=== PATIENT | female | born 1955 | race African-American/Black ===

== ENCOUNTER 2019-03-16 22:13 | Inpatient (IN) | payer MEDICARE, MEDICAID ==
[2019-03-17] MEDS ORDERED: Maalox 30 mL Cup PO PRN (01:49)
--- NOTE | 2019-03-17 08:18 | Psychiatric Evaluation ---
DATE OF SERVICE: 03/17/2019 PSYCHIATRIC INITIAL EVALUATION AND MENTAL STATUS EXAMINATION AGE: 63. SEX: Female. PHYSICIAN: Dr. Vo. CHIEF COMPLAINT: Refused to eat and isolates herself. HISTORY OF PRESENT ILLNESS: The patient is a 63-year-old female with long history of depression and psychosis. The patient has been suspicious and has been paranoid. The patient also has been easily irritable and easily agitated and does not cooperate with the staff in [place] where she resides. The patient also does not want to leave her room and does not eat. She also has been anxious and restless and suspicious. PAST PSYCHIATRIC HISTORY: The patient has long history of depression and paranoia. PAST MEDICAL HISTORY: The patient has a history of hypertension and hyperlipidemia and gastroesophageal reflux disease and cataracts. SOCIAL HISTORY: The patient lives in [facility]. No known alcohol or drug use. ALLERGIES: No known allergies. MENTAL STATUS EXAMINATION: The patient appears her stated age. Anxious. Unkempt. Irritable mood. Suspicious and paranoid. She wants to be left alone. Thought processes are disorganized. The patient denies any hallucinations or delusions, but seems to be suspicious and paranoid. The patient denies any thoughts of suicide or homicide. The patient is alert and oriented to situation, but not to date or place. Intact immediate, recent and remote memories. Poor insight and poor judgment. Seems to be of average intelligence based on her verbal ability. ASSESSMENT: PRIMARY DIAGNOSIS: Depressive mood disorder, unspecified, severe, with psychotic features. SECONDARY DIAGNOSIS: History of schizophrenia. TREATMENT PLAN: We will continue to monitor the patient's behavior and condition closely. We will start individual as well as milieu psychotherapy. Also, we will monitor psychotropic medications. Also, we will add Remeron 7.5 mg at bedtime and we will continue to follow up. Also, we will work on her ineffective coping. ESTIMATED LENGTH OF STAY: 5-7 days. PATIENT'S STRENGTHS AND WEAKNESSES: The patient's strength is not clear at this time. Weakness is her ineffective coping and her paranoia. AFTER DISCHARGE PLAN: Outpatient treatment and followup will continue as an outpatient. CRITERIA FOR DISCHARGE: The patient will not be psychotic and will stabilize psychotropic medications and will establish outpatient treatment plans. JOB# [id number]
[2019-03-17] MEDS: Benztropine 1 MG TAB PO SCH (08:41)
--- NOTE | 2019-03-17 21:44 | History & Physical ---
ADMIT DATE: 03/17/2019 HISTORY OF PRESENT ILLNESS: The patient is a 63-year-old female with long history of hypertension, hyperlipidemia, degenerative joint disease, schizophrenia, admitted to [facility] under Dr. Vo's service. The patient denies any chest pain, shortness of breath, nausea, vomiting, fever or chills. The patient has a poor appetite and poor intake since this morning. PAST MEDICAL HISTORY: Significant for hypertension, hyperlipidemia, degenerative joint disease, schizophrenia. PAST SURGICAL HISTORY: No recent surgery. ALLERGIES: PENICILLIN. MEDICATIONS: Follow admission reconciliation. SOCIAL HISTORY: No smoking, no alcohol, no drug. FAMILY HISTORY: Noncontributory. REVIEW OF SYSTEMS: RENAL SYSTEM: No history of chronic renal disorder. CARDIOVASCULAR SYSTEM: No coronary artery disease. She has history of hypertension. ENDOCRINE SYSTEM: No diabetes or thyroid problem. GASTROINTESTINAL SYSTEM: No upper or lower GI bleed. NEUROLOGICAL SYSTEM: No seizure disorder. SKELETOMUSCULAR SYSTEM: She has degenerative joint disease. HEMATOLOGICAL SYSTEM: No bleeding tendencies. RESPIRATORY SYSTEM: No asthma. GENITOURINARY: No dysuria or hematuria. PHYSICAL EXAMINATION: GENERAL: She is awake, alert. VITAL SIGNS: Last temperature 97.3, heart rate 80, blood pressure 118/80. HEENT: Normocephalic. Pupils reactive to light and accommodation. Sclerae clear. NECK: Supple. Negative for lymphadenopathy, JVD or bruit. CHEST: Entry of air bilaterally normal. No rhonchi or wheezing. HEART: S1, S2 normal. No gallop rhythm. ABDOMEN: Soft, bowel sounds positive. EXTREMITIES: No edema. NEUROLOGIC: She is awake, alert, mildly confused. No focal muscle deficits. Cranial nerves 2-12 intact. ASSESSMENT: 1. Hypertension. 2. Hyperlipidemia. 3. Degenerative joint disease. 4. Schizophrenia. PLAN: The patient in the hospital under Dr. Vo's service. Problems addressed during hospitalization are schizophrenia. Medical problems addressed at discharge are hypertension, hyperlipidemia, degenerative joint disease. The patient was started on Megace 10 mL twice a day and Ensure 3 times a day. The patient cleared for activity. Thank you Dr. Vo for asking me to see your patient. The patient is a full code. JOB# [id number]
[2019-03-18] MEDS: Benztropine 1 MG TAB PO SCH (09:03)
--- NOTE | 2019-03-18 18:34 | Internal Medicine Prog Note ---
Internal Medicine Subjective - Subjective Service Date: 03/18/19 Patient seen and examined:: with staff (SHE IS DOING BETTER) Patient is:: awake, verbal, confused Per staff patient has:: no adverse event Internal Medicine Objective - Physical Exam Vitals and I&O: Vital Signs Temp 97.6 F 03/18/19 14:00 Pulse 72 03/18/19 14:00 Resp 20 03/18/19 14:00 BP 112/73 03/18/19 14:00 Pulse Ox 97 03/18/19 14:00 Intake & Output 03/17/19 03/18/19 03/18/19 18:59 06:59 18:59 Intake Total 900 120 Balance 900 120 Intake: Oral 900 120 Other: # Voids 3 2 # Bowel Movements 1 0 Active Medications: Current Medications Al Hydrox/Mg Hydrox/Simethicone (Maalox) 30 ml PO QID PRN PRN Reason: GI DISTRESS Stop: 05/16/19 01:48 Aripiprazole (Abilify) 5 mg PO QAM [facility]; Protocol Stop: 05/16/19 08:59 Last Admin: 03/18/19 09:03 Dose: 5 mg Benztropine Mesylate (Cogentin) 1 mg PO DAILY [facility] Stop: 05/16/19 08:59 Last Admin: 03/18/19 09:03 Dose: 1 mg Docusate Sodium (Colace) 250 mg PO DAILY [facility] Stop: 05/16/19 08:59 Last Admin: 03/18/19 09:03 Dose: 250 mg Escitalopram Oxalate (Lexapro) 20 mg PO DAILY [facility]; Protocol Stop: 05/16/19 08:59 Last Admin: 03/18/19 09:02 Dose: 20 mg Lorazepam (Ativan) 0.5 mg PO Q4HR PRN; Protocol PRN Reason: Anxiety Stop: 04/16/19 01:45 Megestrol Acetate (Megace) 400 mg PO BID [facility]; Protocol Stop: 05/17/19 08:59 Last Admin: 03/18/19 17:01 Dose: Not Given Metoprolol Succinate (Toprol Xl) 25 mg PO DAILY [facility] Stop: 05/16/19 08:59 Last Admin: 03/18/19 09:03 Dose: Not Given Simvastatin (Zocor) 20 mg PO HS [facility]; Protocol Stop: 05/16/19 20:59 Last Admin: 01/24/20 20:58 Dose: 20 mg Zolpidem Tartrate (Ambien) 5 mg PO HS PRN PRN Reason: Insomnia Stop: 05/16/19 01:45 General: demented HEENT: NC/AT, PERRLA, EOMI, anicteric sclerae, throat clear Neck: Supple, No JVD, No thyromegaly, +2 carotid pulse wo bruit, No LAD Lungs: CTAB Cardiovascular: RRR, Normal S1, Normal S2, without murmur Abdomen: soft, non-tender, non-distended Extremities: clear Neurological: no change - Procedures Procedures: Procedures Procedure Code Date ASPIR CURETT UTERUS NEC 69.59 08/15/09 COLONOSCOPY 45.23 03/26/10 DIAGNOSTIC COLONOSCOPY 02721 03/26/10 DILATION AND CURETTAGE 58532 08/15/09 LAPAROSCOPIC CHOLECYSTECTOMY 51.23 03/26/10 LAPAROSCOPIC CHOLECYSTECTOMY 86723 03/26/10 Internal Medicine Assmt/Plan - Assessment Assessment: 1.HTN. 2.HYPERLIPIDEMIA. 2.DJD. 4.SCHIZOPHRENIA - Plan Plan: CONTINUE ON CURRENT MEDICATION AND DIET.
--- NOTE | 2019-03-18 19:46 | Progress Notes ---
DATE: 03/18/2019 PSYCHIATRIC PROGRESS NOTE SUBJECTIVE: Chart reviewed and the patient interviewed. Also discussed the patient's condition with the staff and reviewed records and labs. The patient continued to be in a depressed mood. The patient also is still withdrawn and guarded and interacting minimally with others. On the other hand, the patient is eating slightly better and seems to be slightly less depressed. She is also trying to interact more with others. Dr. Grove started her on Megace yesterday. She still tends to isolate herself with minimal interaction with others. ASSESSMENT: The patient is still depressed. TREATMENT PLAN: Continue monitoring her behavior and her condition closely. Also, Abilify was increased to 5 mg every day and Remeron was added in a dose of 7.5 mg at bedtime. We will continue same dose and we will continue to monitor her condition and behavior closely. JOB# [id number]
[2019-03-19] MEDS: Benztropine 1 MG TAB PO SCH (09:22)
--- NOTE | 2019-03-19 19:57 | Progress Notes ---
DATE: 03/19/2019 SUBJECTIVE: Chart was reviewed and the patient interviewed. Also discussed the patient's condition with the staff and reviewed records and labs. The patient is still paranoid and in a depressed mood. The patient also still has flat affect. Also, personal hygiene is still poor and the patient still needs redirections. Otherwise, the patient is compliant with taking her medications with no side effects of medications. Also, her appetite seems to be improved. The patient continued to take Megace where that seems to help with her appetite as well as addition of the Remeron. ASSESSMENT: The patient is still depressed and psychotic. TREATMENT PLAN: Continue monitoring her behavior and her condition closely. Also, continue adjusting psychotropic medications and work on behavioral modification. [facility]# [id number]
--- NOTE | 2019-03-19 22:07 | Internal Medicine Prog Note ---
Internal Medicine Subjective - Subjective Service Date: 03/19/19 Patient seen and examined:: without staff (SHE FEELS WELL) Patient is:: awake, verbal, confused Per staff patient has:: no adverse event Internal Medicine Objective - Physical Exam Vitals and I&O: Vital Signs Temp 97.7 F 03/19/19 20:24 Pulse 70 03/19/19 20:24 Resp 20 03/19/19 20:24 BP 101/69 03/19/19 20:24 Pulse Ox 97 03/19/19 20:24 Intake & Output 03/19/19 03/19/19 03/20/19 06:59 18:59 06:59 Intake Total 240 900 240 Balance 240 900 240 Intake: Oral 240 900 240 Other: # Voids 1 3 2 # Bowel Movements 1 Active Medications: Current Medications Al Hydrox/Mg Hydrox/Simethicone (Maalox) 30 ml PO QID PRN PRN Reason: GI DISTRESS Stop: 05/16/19 01:48 Aripiprazole (Abilify) 5 mg PO QAM [facility]; Protocol Stop: 05/16/19 08:59 Last Admin: 03/19/19 09:22 Dose: 5 mg Benztropine Mesylate (Cogentin) 1 mg PO DAILY [facility] Stop: 05/16/19 08:59 Last Admin: 03/19/19 09:22 Dose: 1 mg Docusate Sodium (Colace) 250 mg PO DAILY [facility] Stop: 05/16/19 08:59 Last Admin: 03/19/19 09:23 Dose: 250 mg Escitalopram Oxalate (Lexapro) 20 mg PO DAILY [facility]; Protocol Stop: 05/16/19 08:59 Last Admin: 03/19/19 09:22 Dose: 20 mg Lorazepam (Ativan) 0.5 mg PO Q4HR PRN; Protocol PRN Reason: Anxiety Stop: 04/16/19 01:45 Megestrol Acetate (Megace) 400 mg PO BID [facility]; Protocol Stop: 05/17/19 08:59 Last Admin: 03/19/19 17:47 Dose: 400 mg Metoprolol Succinate (Toprol Xl) 25 mg PO DAILY [facility] Stop: 05/16/19 08:59 Last Admin: 03/19/19 09:26 Dose: 25 mg Simvastatin (Zocor) 20 mg PO HS [facility]; Protocol Stop: 05/16/19 20:59 Last Admin: 03/19/19 21:37 Dose: 20 mg Zolpidem Tartrate (Ambien) 5 mg PO HS PRN PRN Reason: Insomnia Stop: 05/16/19 01:45 Last Admin: 03/18/19 21:36 Dose: 5 mg General: demented HEENT: NC/AT, PERRLA, EOMI, anicteric sclerae, throat clear Neck: Supple, No JVD, No thyromegaly, +2 carotid pulse wo bruit, No LAD Lungs: CTAB Cardiovascular: RRR, Normal S1, Normal S2, without murmur Abdomen: soft, non-tender, non-distended Extremities: clear Neurological: no change - Procedures Procedures: Procedures Procedure Code Date ASPIR CURETT UTERUS NEC 69.59 08/15/09 COLONOSCOPY 45.23 03/26/10 DIAGNOSTIC COLONOSCOPY 35396 03/26/10 DILATION AND CURETTAGE 55364 08/15/09 LAPAROSCOPIC CHOLECYSTECTOMY 51.23 03/26/10 LAPAROSCOPIC CHOLECYSTECTOMY 57425 03/26/10 Internal Medicine Assmt/Plan - Assessment Assessment: 1.HTN. 2.HYPERLIPIDEMIA. 2.DJD. 4.SCHIZOPHRENIA - Plan Plan: CONTINUE ON CURRENT MEDICATION AND DIET.
[2019-03-20] MEDS: Benztropine 1 MG TAB PO SCH (08:51)
--- NOTE | 2019-03-20 20:22 | Internal Medicine Prog Note ---
Internal Medicine Subjective - Subjective Service Date: 03/20/19 Patient seen and examined:: without staff (SHE IS DOING WELL) Patient is:: awake, verbal, confused Per staff patient has:: no adverse event Internal Medicine Objective - Physical Exam Vitals and I&O: Vital Signs Temp 97.5 F 03/20/19 14:00 Pulse 64 03/20/19 14:00 Resp 20 03/20/19 14:00 BP 111/71 03/20/19 14:00 Pulse Ox 96 03/20/19 14:00 Intake & Output 03/20/19 03/20/19 03/21/19 06:59 18:59 06:59 Intake Total 360 1000 Balance 360 1000 Intake: Oral 360 1000 Other: # Voids 1 4 # Bowel Movements 0 1 Active Medications: Current Medications Al Hydrox/Mg Hydrox/Simethicone (Maalox) 30 ml PO QID PRN PRN Reason: GI DISTRESS Stop: 05/16/19 01:48 Aripiprazole (Abilify) 5 mg PO QAM [facility]; Protocol Stop: 05/16/19 08:59 Last Admin: 03/20/19 08:51 Dose: 5 mg Benztropine Mesylate (Cogentin) 1 mg PO DAILY [facility] Stop: 05/16/19 08:59 Last Admin: 03/20/19 08:51 Dose: 1 mg Docusate Sodium (Colace) 250 mg PO DAILY [facility] Stop: 05/16/19 08:59 Last Admin: 03/20/19 08:51 Dose: 250 mg Escitalopram Oxalate (Lexapro) 20 mg PO DAILY [facility]; Protocol Stop: 05/16/19 08:59 Last Admin: 03/20/19 08:51 Dose: 20 mg Lorazepam (Ativan) 0.5 mg PO Q4HR PRN; Protocol PRN Reason: Anxiety Stop: 04/16/19 01:45 Megestrol Acetate (Megace) 400 mg PO BID [facility]; Protocol Stop: 05/17/19 08:59 Last Admin: 03/20/19 17:00 Dose: 400 mg Metoprolol Succinate (Toprol Xl) 25 mg PO DAILY [facility] Stop: 05/16/19 08:59 Last Admin: 03/20/19 08:52 Dose: Not Given Mirtazapine (Remeron) 7.5 mg PO HS [facility]; Protocol Stop: 05/19/19 20:59 Simvastatin (Zocor) 20 mg PO HS [facility]; Protocol Stop: 05/16/19 20:59 Last Admin: 03/19/19 21:37 Dose: 20 mg Zolpidem Tartrate (Ambien) 5 mg PO HS PRN PRN Reason: Insomnia Stop: 05/16/19 01:45 Last Admin: 03/18/19 21:36 Dose: 5 mg General: demented HEENT: NC/AT, PERRLA, EOMI, anicteric sclerae, throat clear Neck: Supple, No JVD, No thyromegaly, +2 carotid pulse wo bruit, No LAD Lungs: CTAB Cardiovascular: RRR, Normal S1, Normal S2, without murmur Abdomen: soft, non-tender, non-distended Extremities: clear Neurological: no change - Procedures Procedures: Procedures Procedure Code Date ASPIR CURETT UTERUS NEC 69.59 08/15/09 COLONOSCOPY 45.23 03/26/10 DIAGNOSTIC COLONOSCOPY 55185 03/26/10 DILATION AND CURETTAGE 53897 08/15/09 LAPAROSCOPIC CHOLECYSTECTOMY 51.23 03/26/10 LAPAROSCOPIC CHOLECYSTECTOMY 20319 03/26/10 Internal Medicine Assmt/Plan - Assessment Assessment: 1.HTN. 2.HYPERLIPIDEMIA. 2.DJD. 4.SCHIZOPHRENIA - Plan Plan: CONTINUE ON CURRENT MEDICATION AND DIET. Nutritional Asmnt/Malnutr-PDOC - Dietary Evaluation Malnutrition Findings (Please click <Entered> for more info): Nutritional Asmnt/Malnutrition Start: 03/20/19 14: 08 Text: Status: Complete Freq: Protocol: Document 03/20/19 14:08 AGNEL (Rec: 03/20/19 14:10 [email or web address] [email or web address]) Nutritional Asmnt/Malnutrition Patient General Information Nutritional Screening Moderate Risk Diagnosis Psychosis Pertinent Medical Hx/Surgical Hx HTN, Hyperlipidemia, DJD, Schizophrenia Subjective Information Pt is a 63-year-old female admitted on 03/17 d/t. Pt is eating an estimated 95% of meals Per Meal/Nutrition Activity Record. Dietary is currently providing an estimated 2500 kcals and 110 gm Pro, per Pt PO intake this is providing an estimated 2400 kcals and 105gm Pro to meet 100+% kcal and 100+% Pro needs . Visited pt in room today, she still had lunch on her tray table. Pt had eaten the ice cream and drank the milk. Pt stated she just has a small appetite. She understands she is on an appetite stimulant and she does drink her Ensure. Nurse Samira stated she typically eats almost all of her meal trays and she may finish her tray with more time . As pt is exceeding estimated nutritional needs overall, Recommend Cardiac diet d/t Hx of HTN and Hyperlipidemia and BMI 37.31. Anthropometrics HT: 52 WT: 204 LB (92.73 kg) ABW: 135 LB (60.68 kg) BMI: 37.31 (Obese, class II) GI/ Skin Integrity GI: WNL, Soft, Non-tender BM: 03/19 x1 I/O: 1260/Not Noted Skin: WNL, Intact Leonid: 20 Diet Order: 2 GM NA, Ensure Enlive TID Estimated Energy Needs: (Obese , ABW) 0385-4544 kcals (20-25 kcals/ kg) 50-60g Pro (0.8-1.0 g/kg) 9089-0239 ml (25-30 ml/kg) Current Diet Order/ Nutrition Support 2 GM NA, Ensure Enlive TID Pertinent Medications Colace, Megace Pertinent Labs No labs charted/available. Nutritional Hx/Data Height 1.57 m Height (Calculated Centimeters) 157.5 Current Weight (lbs) 92.533 kg Weight (Calculated Kilograms) 92.5 Weight (Calculated Grams) 01821.8 Hiram Body Weight 110 LB (50 kg) % Hiram Body Weight 185 Body Mass Index (BMI) 37.3 Weight Status Obese GI Symptoms Last BM 03/19 x1 Skin Integrity/Comment: Skin: WNL, Intact Leonid: 20 Current %PO Good (75-100%) Estimated Nutritional Goals BEE in Kcals: Adj wt of IBW Calories/Kcals/Kg 20-25 Kcals Calculated 9370-5247 Protein: Adj wt of IBW Protein g/k.8-1.0 Protein Calculated 50-60 Fluid: ml 8830-0748 Nutritional Problem 1. Problem Problem Obesity Etiology r/t chronic energy overconsumption Signs/Symptoms: aeb BMI 37.31. Malnutrition Related to Morbid Obesity Malnutrition related to morbid obesity No Intervention/Recommendation Comments Recommend Cardiac diet d/t Hx of HTN and Hyperlipidemia and BMI 37.31. Expected Outcomes/Goals Expected Outcomes/Goals 1.PO intake to continue to meet >75% of estimated nutritional needs. 2.Monitor PO intake, wt, nutrition related labs, and skin integrity. 3.Gradual weight loss (0.5-1.0 LB/week) trending toward STACEY preferred. 4.F/U as low risk in 7-10 days , //-03/30
--- NOTE | 2019-03-21 03:13 | Progress Notes ---
DATE: 03/20/2019 SUBJECTIVE: Chart was reviewed and the patient interviewed. Also discussed the patient's condition with the staff and reviewed records and labs. The patient continued to be depressed and is still suspicious and paranoid. The patient also is still talking to herself. She also is still forgetful and needs redirections. Also, has flat affect. Otherwise, the patient is compliant with taking her medications. The patient's appetite is still poor at times and was supposed to start the patient on Remeron yesterday, for some reason it did not start. ASSESSMENT: The patient is still depressed and still has poor appetite. TREATMENT PLAN: We will add Remeron 7.5 mg at bedtime and continue Abilify and Lexapro and continue to monitor her condition closely. JOB# [id number]
[2019-03-21] MEDS: Benztropine 1 MG TAB PO SCH (08:42)
--- NOTE | 2019-03-21 10:27 | Internal Medicine Prog Note ---
Internal Medicine Subjective - Subjective Service Date: 03/21/19 Patient seen and examined:: without staff (SHE IS CONFUSED) Patient is:: awake, verbal, confused Per staff patient has:: no adverse event Internal Medicine Objective - Physical Exam Vitals and I&O: Vital Signs Temp 97.1 F 03/21/19 06:46 Pulse 56 03/21/19 08:42 Resp 20 03/21/19 06:46 BP 116/62 03/21/19 08:42 Pulse Ox 100 03/21/19 06:46 Intake & Output 03/20/19 03/21/19 03/21/19 18:59 06:59 18:59 Intake Total 1000 240 Balance 1000 240 Intake: Oral 1000 240 Other: # Voids 4 1 # Bowel Movements 1 Active Medications: Current Medications Al Hydrox/Mg Hydrox/Simethicone (Maalox) 30 ml PO QID PRN PRN Reason: GI DISTRESS Stop: 05/16/19 01:48 Aripiprazole (Abilify) 5 mg PO QAM [facility]; Protocol Stop: 05/16/19 08:59 Last Admin: 03/21/19 08:42 Dose: 5 mg Benztropine Mesylate (Cogentin) 1 mg PO DAILY [facility] Stop: 05/16/19 08:59 Last Admin: 03/21/19 08:42 Dose: 1 mg Docusate Sodium (Colace) 250 mg PO DAILY [facility] Stop: 05/16/19 08:59 Last Admin: 03/21/19 08:42 Dose: 250 mg Escitalopram Oxalate (Lexapro) 20 mg PO DAILY [facility]; Protocol Stop: 05/16/19 08:59 Last Admin: 03/21/19 08:42 Dose: 20 mg Lorazepam (Ativan) 0.5 mg PO Q4HR PRN; Protocol PRN Reason: Anxiety Stop: 04/16/19 01:45 Megestrol Acetate (Megace) 400 mg PO BID [facility]; Protocol Stop: 05/17/19 08:59 Last Admin: 03/21/19 08:41 Dose: 400 mg Metoprolol Succinate (Toprol Xl) 25 mg PO DAILY [facility] Stop: 05/16/19 08:59 Last Admin: 03/21/19 08:42 Dose: Not Given Mirtazapine (Remeron) 7.5 mg PO HS [facility]; Protocol Stop: 05/19/19 20:59 Last Admin: 03/20/19 20:54 Dose: 7.5 mg Simvastatin (Zocor) 20 mg PO HS [facility]; Protocol Stop: 05/16/19 20:59 Last Admin: 03/20/19 20:54 Dose: 20 mg Zolpidem Tartrate (Ambien) 5 mg PO HS PRN PRN Reason: Insomnia Stop: 05/16/19 01:45 Last Admin: 03/18/19 21:36 Dose: 5 mg General: demented HEENT: NC/AT, PERRLA, EOMI, anicteric sclerae, throat clear Neck: Supple, No JVD, No thyromegaly, +2 carotid pulse wo bruit, No LAD Lungs: CTAB Cardiovascular: RRR, Normal S1, Normal S2, without murmur Abdomen: soft, non-tender, non-distended Extremities: clear Neurological: no change - Procedures Procedures: Procedures Procedure Code Date ASPIR CURETT UTERUS NEC 69.59 08/15/09 COLONOSCOPY 45.23 03/26/10 DIAGNOSTIC COLONOSCOPY 76624 03/26/10 DILATION AND CURETTAGE 93231 08/15/09 LAPAROSCOPIC CHOLECYSTECTOMY 51.23 03/26/10 LAPAROSCOPIC CHOLECYSTECTOMY 08498 03/26/10 Internal Medicine Assmt/Plan - Assessment Assessment: 1.HTN. 2.HYPERLIPIDEMIA. 2.DJD. 4.SCHIZOPHRENIA - Plan Plan: CONTINUE ON CURRENT MEDICATION AND DIET. Nutritional Asmnt/Malnutr-PDOC - Dietary Evaluation Malnutrition Findings (Please click <Entered> for more info): Nutritional Asmnt/Malnutrition Start: 03/20/19 14: 08 Text: Status: Complete Freq: Protocol: Document 03/20/19 14:08 ANGEL (Rec: 03/20/19 14:10 ANGEL [email or web address]) Nutritional Asmnt/Malnutrition Patient General Information Nutritional Screening Moderate Risk Diagnosis Psychosis Pertinent Medical Hx/Surgical Hx HTN, Hyperlipidemia, DJD, Schizophrenia Subjective Information Pt is a 63-year-old female admitted on 03/17 d/t. Pt is eating an estimated 95% of meals Per Meal/Nutrition Activity Record. Dietary is currently providing an estimated 2500 kcals and 110 gm Pro, per Pt PO intake this is providing an estimated 2400 kcals and 105gm Pro to meet 100+% kcal and 100+% Pro needs . Visited pt in room today, she still had lunch on her tray table. Pt had eaten the ice cream and drank the milk. Pt stated she just has a small appetite. She understands she is on an appetite stimulant and she does drink her Ensure. Nurse Samira stated she typically eats almost all of her meal trays and she may finish her tray with more time . As pt is exceeding estimated nutritional needs overall, Recommend Cardiac diet d/t Hx of HTN and Hyperlipidemia and BMI 37.31. Anthropometrics HT: 52 WT: 204 LB (92.73 kg) ABW: 135 LB (60.68 kg) BMI: 37.31 (Obese, class II) GI/ Skin Integrity GI: WNL, Soft, Non-tender BM: 03/19 x1 I/O: 1260/Not Noted Skin: WNL, Intact Leonid: 20 Diet Order: 2 GM NA, Ensure Enlive TID Estimated Energy Needs: (Obese , ABW) 0895-4427 kcals (20-25 kcals/ kg) 50-60g Pro (0.8-1.0 g/kg) 2710-1172 ml (25-30 ml/kg) Current Diet Order/ Nutrition Support 2 GM NA, Ensure Enlive TID Pertinent Medications Colace, Megace Pertinent Labs No labs charted/available. Nutritional Hx/Data Height 1.57 m Height (Calculated Centimeters) 157.5 Current Weight (lbs) 92.533 kg Weight (Calculated Kilograms) 92.5 Weight (Calculated Grams) 18531.8 [place] Body Weight 110 LB (50 kg) % [place] Body Weight 185 Body Mass Index (BMI) 37.3 Weight Status Obese GI Symptoms Last BM 03/19 x1 Skin Integrity/Comment: Skin: WNL, Intact Leonid: 20 Current %PO Good (75-100%) Estimated Nutritional Goals BEE in Kcals: Adj wt of IBW Calories/Kcals/Kg 20-25 Kcals Calculated 5454-8156 Protein: Adj wt of IBW Protein g/k.8-1.0 Protein Calculated 50-60 Fluid: ml 6040-0693 Nutritional Problem 1. Problem Problem Obesity Etiology r/t chronic energy overconsumption Signs/Symptoms: aeb BMI 37.31. Malnutrition Related to Morbid Obesity Malnutrition related to morbid obesity No Intervention/Recommendation Comments Recommend Cardiac diet d/t Hx of HTN and Hyperlipidemia and BMI 37.31. Expected Outcomes/Goals Expected Outcomes/Goals 1.PO intake to continue to meet >75% of estimated nutritional needs. 2.Monitor PO intake, wt, nutrition related labs, and skin integrity. 3.Gradual weight loss (0.5-1.0 LB/week) trending toward STACEY preferred. 4.F/U as low risk in 7-10 days , -03/30
--- NOTE | 2019-03-21 18:35 | Progress Notes ---
DATE: 03/21/2019 SUBJECTIVE: Chart was reviewed and the patient interviewed. Also discussed the patient's condition with the staff and reviewed records and labs. The patient continued to be suspicious and continued to be paranoid. The patient also is still forgetful and is still isolative and withdrawn and depressed. The patient also has continued to be argumentative at times, but at the same time, she is compliant with taking her medications with no side effects of medications. ASSESSMENT: The patient is still depressed and withdrawn. TREATMENT PLAN: Continue monitoring her behavior and her condition closely. Also, continue Abilify, Lexapro and Remeron same dose and continue to follow up. JOB# [id number]
[2019-03-22] MEDS: Benztropine 1 MG TAB PO SCH (08:44)
--- NOTE | 2019-03-22 11:35 | Internal Medicine Prog Note ---
Internal Medicine Subjective - Subjective Service Date: 03/22/19 Patient seen and examined:: with staff (SHE IS DOING WELL) Patient is:: awake, verbal, confused Per staff patient has:: no adverse event Internal Medicine Objective - Physical Exam Vitals and I&O: Vital Signs Temp 97.4 F 03/22/19 06:26 Pulse 69 03/22/19 09:02 Resp 20 03/22/19 06:26 BP 107/71 03/22/19 09:02 Pulse Ox 97 03/22/19 06:26 Intake & Output 03/21/19 03/22/19 03/22/19 18:59 06:59 18:59 Intake Total 1200 360 Balance 1200 360 Intake: Oral 1200 360 Other: # Voids 4 2 # Bowel Movements 1 0 Active Medications: Current Medications Al Hydrox/Mg Hydrox/Simethicone (Maalox) 30 ml PO QID PRN PRN Reason: GI DISTRESS Stop: 05/16/19 01:48 Aripiprazole (Abilify) 5 mg PO QAM [facility]; Protocol Stop: 05/16/19 08:59 Last Admin: 03/22/19 08:43 Dose: 5 mg Benztropine Mesylate (Cogentin) 1 mg PO DAILY [facility] Stop: 05/16/19 08:59 Last Admin: 03/22/19 08:44 Dose: 1 mg Docusate Sodium (Colace) 250 mg PO DAILY [facility] Stop: 05/16/19 08:59 Last Admin: 03/22/19 08:43 Dose: 250 mg Escitalopram Oxalate (Lexapro) 20 mg PO DAILY [facility]; Protocol Stop: 05/16/19 08:59 Last Admin: 03/22/19 08:43 Dose: 20 mg Lorazepam (Ativan) 0.5 mg PO Q4HR PRN; Protocol PRN Reason: Anxiety Stop: 04/16/19 01:45 Megestrol Acetate (Megace) 400 mg PO BID [facility]; Protocol Stop: 05/17/19 08:59 Last Admin: 03/22/19 08:43 Dose: 400 mg Metoprolol Succinate (Toprol Xl) 25 mg PO DAILY [facility] Stop: 05/16/19 08:59 Last Admin: 03/22/19 09:02 Dose: Not Given Mirtazapine (Remeron) 15 mg PO HS [facility]; Protocol Stop: 05/21/19 20:59 Simvastatin (Zocor) 20 mg PO HS [facility]; Protocol Stop: 05/16/19 20:59 Last Admin: 03/21/19 20:35 Dose: 20 mg Zolpidem Tartrate (Ambien) 5 mg PO HS PRN PRN Reason: Insomnia Stop: 05/16/19 01:45 Last Admin: 03/18/19 21:36 Dose: 5 mg General: demented HEENT: NC/AT, PERRLA, EOMI, anicteric sclerae, throat clear Neck: Supple, No JVD, No thyromegaly, +2 carotid pulse wo bruit, No LAD Lungs: CTAB Cardiovascular: RRR, Normal S1, Normal S2, without murmur Abdomen: soft, non-tender, non-distended Extremities: clear Neurological: no change - Procedures Procedures: Procedures Procedure Code Date ASPIR CURETT UTERUS NEC 69.59 08/15/09 COLONOSCOPY 45.23 03/26/10 DIAGNOSTIC COLONOSCOPY 16718 03/26/10 DILATION AND CURETTAGE 26956 08/15/09 LAPAROSCOPIC CHOLECYSTECTOMY 51.23 03/26/10 LAPAROSCOPIC CHOLECYSTECTOMY 72769 03/26/10 Internal Medicine Assmt/Plan - Assessment Assessment: 1.HTN. 2.HYPERLIPIDEMIA. 2.DJD. 4.SCHIZOPHRENIA - Plan Plan: CONTINUE ON CURRENT MEDICATION AND DIET. Nutritional Asmnt/Malnutr-PDOC - Dietary Evaluation Malnutrition Findings (Please click <Entered> for more info): Nutritional Asmnt/Malnutrition Start: 03/20/19 14: 08 Text: Status: Complete Freq: Protocol: Document 03/20/19 14:08 ANGEL (Rec: 03/20/19 14:10 ANGEL [email or web address]) Nutritional Asmnt/Malnutrition Patient General Information Nutritional Screening Moderate Risk Diagnosis Psychosis Pertinent Medical Hx/Surgical Hx HTN, Hyperlipidemia, DJD, Schizophrenia Subjective Information Pt is a 63-year-old female admitted on 03/17 d/t. Pt is eating an estimated 95% of meals Per Meal/Nutrition Activity Record. Dietary is currently providing an estimated 2500 kcals and 110 gm Pro, per Pt PO intake this is providing an estimated 2400 kcals and 105gm Pro to meet 100+% kcal and 100+% Pro needs . Visited pt in room today, she still had lunch on her tray table. Pt had eaten the ice cream and drank the milk. Pt stated she just has a small appetite. She understands she is on an appetite stimulant and she does drink her Ensure. Nurse Samira stated she typically eats almost all of her meal trays and she may finish her tray with more time . As pt is exceeding estimated nutritional needs overall, Recommend Cardiac diet d/t Hx of HTN and Hyperlipidemia and BMI 37.31. Anthropometrics HT: 52 WT: 204 LB (92.73 kg) ABW: 135 LB (60.68 kg) BMI: 37.31 (Obese, class II) GI/ Skin Integrity GI: WNL, Soft, Non-tender BM: 03/19 x1 I/O: 1260/Not Noted Skin: WNL, Intact Leonid: 20 Diet Order: 2 GM NA, Ensure Enlive TID Estimated Energy Needs: (Obese , ABW) 1028-2194 kcals (20-25 kcals/ kg) 50-60g Pro (0.8-1.0 g/kg) 9851-3765 ml (25-30 ml/kg) Current Diet Order/ Nutrition Support 2 GM NA, Ensure Enlive TID Pertinent Medications Colace, Megace Pertinent Labs No labs charted/available. Nutritional Hx/Data Height 1.57 m Height (Calculated Centimeters) 157.5 Current Weight (lbs) 92.533 kg Weight (Calculated Kilograms) 92.5 Weight (Calculated Grams) 52831.8 [place] Body Weight 110 LB (50 kg) % [place] Body Weight 185 Body Mass Index (BMI) 37.3 Weight Status Obese GI Symptoms Last BM 03/19 x1 Skin Integrity/Comment: Skin: WNL, Intact Leonid: 20 Current %PO Good (75-100%) Estimated Nutritional Goals BEE in Kcals: Adj wt of IBW Calories/Kcals/Kg 20-25 Kcals Calculated 2264-6206 Protein: Adj wt of IBW Protein g/k.8-1.0 Protein Calculated 50-60 Fluid: ml 9930-3921 Nutritional Problem 1. Problem Problem Obesity Etiology r/t chronic energy overconsumption Signs/Symptoms: aeb BMI 37.31. Malnutrition Related to Morbid Obesity Malnutrition related to morbid obesity No Intervention/Recommendation Comments Recommend Cardiac diet d/t Hx of HTN and Hyperlipidemia and BMI 37.31. Expected Outcomes/Goals Expected Outcomes/Goals 1.PO intake to continue to meet >75% of estimated nutritional needs. 2.Monitor PO intake, wt, nutrition related labs, and skin integrity. 3.Gradual weight loss (0.5-1.0 LB/week) trending toward STACEY preferred. 4.F/U as low risk in 7-10 days , //-03/30
[2019-03-23] MEDS: Benztropine 1 MG TAB PO SCH (09:01)
--- NOTE | 2019-03-23 10:13 | Progress Notes ---
DATE: 03/22/2019 SUBJECTIVE: Chart was reviewed and the patient interviewed. Also discussed the patient's condition with the staff and reviewed records and labs. The patient is still in a depressed mood. The patient also is still withdrawn and isolative and interacting minimally with others. She also is still suspicious and at times seems to be paranoid, but no behavioral issues. The patient also is isolating herself and does not get out of her room much. Otherwise, the patient is compliant with taking her medications with no side effects of medications. ASSESSMENT: The patient is still depressed and guarded. TREATMENT PLAN: Continue to monitor behavior and condition closely. Also, we will increase Remeron to 15 mg at bedtime and continue to work on her ineffective coping. JOB# [id number]
--- NOTE | 2019-03-23 10:13 | Progress Notes ---
DATE: SUBJECTIVE: Chart was reviewed and the patient interviewed. Also discussed the patient's condition with the staff and reviewed records and labs. The patient is still in a depressed mood. The patient also is guarded and withdrawn. She is interacting minimally with peers and with others. The patient also still has mood swings and she is still at times guarded and withdrawn and other times is suspicious and irritable. On the other hand, patient's personal hygiene seems to be better. ASSESSMENT: The patient is still depressed and needs to work on her ineffective coping as well as her depression. Also, continue adjusting medications and continue to work on her isolation and depression. She also is still taking Remeron in a dose of 7.5 mg and Lexapro 20 mg every day and Remeron 15 mg at bedtime. We will continue same dose and continue to follow up behavior and condition closely. JOB# [id number]
--- NOTE | 2019-03-23 19:34 | Internal Medicine Prog Note ---
Internal Medicine Subjective - Subjective Service Date: 03/23/19 Patient seen and examined:: without staff (SHE FEELS WELL) Patient is:: awake, verbal, confused Per staff patient has:: no adverse event Internal Medicine Objective - Physical Exam Vitals and I&O: Vital Signs Temp 97.4 F 03/23/19 13:54 Pulse 85 03/23/19 13:54 Resp 20 03/23/19 13:54 BP 128/63 03/23/19 13:54 Pulse Ox 96 03/23/19 13:54 Intake & Output 03/23/19 03/23/19 03/24/19 06:59 18:59 06:59 Intake Total 120 Balance 120 Intake: Oral 120 Other: # Voids 2 3 # Bowel Movements 0 1 Active Medications: Current Medications Al Hydrox/Mg Hydrox/Simethicone (Maalox) 30 ml PO QID PRN PRN Reason: GI DISTRESS Stop: 05/16/19 01:48 Aripiprazole (Abilify) 5 mg PO QAM [facility]; Protocol Stop: 05/16/19 08:59 Last Admin: 03/23/19 09:02 Dose: 5 mg Benztropine Mesylate (Cogentin) 1 mg PO DAILY [facility] Stop: 05/16/19 08:59 Last Admin: 03/23/19 09:01 Dose: 1 mg Docusate Sodium (Colace) 250 mg PO DAILY [facility] Stop: 05/16/19 08:59 Last Admin: 03/23/19 09:02 Dose: 250 mg Escitalopram Oxalate (Lexapro) 20 mg PO DAILY [facility]; Protocol Stop: 05/16/19 08:59 Last Admin: 03/23/19 09:00 Dose: 20 mg Lorazepam (Ativan) 0.5 mg PO Q4HR PRN; Protocol PRN Reason: Anxiety Stop: 04/16/19 01:45 Megestrol Acetate (Megace) 400 mg PO BID [facility]; Protocol Stop: 05/17/19 08:59 Last Admin: 03/23/19 17:28 Dose: 400 mg Metoprolol Succinate (Toprol Xl) 25 mg PO DAILY [facility] Stop: 05/16/19 08:59 Last Admin: 03/23/19 09:01 Dose: 25 mg Mirtazapine (Remeron) 15 mg PO HS [facility]; Protocol Stop: 05/21/19 20:59 Last Admin: 03/22/19 20:59 Dose: 15 mg Simvastatin (Zocor) 20 mg PO HS [facility]; Protocol Stop: 05/16/19 20:59 Last Admin: 03/22/19 20:59 Dose: 20 mg Zolpidem Tartrate (Ambien) 5 mg PO HS PRN PRN Reason: Insomnia Stop: 05/16/19 01:45 Last Admin: 03/18/19 21:36 Dose: 5 mg General: demented HEENT: NC/AT, PERRLA, EOMI, anicteric sclerae, throat clear Neck: Supple, No JVD, No thyromegaly, +2 carotid pulse wo bruit, No LAD Lungs: CTAB Cardiovascular: RRR, Normal S1, Normal S2, without murmur Abdomen: soft, non-tender, non-distended Extremities: clear Neurological: no change - Procedures Procedures: Procedures Procedure Code Date ASPIR CURETT UTERUS NEC 69.59 08/15/09 COLONOSCOPY 45.23 03/26/10 DIAGNOSTIC COLONOSCOPY 96684 03/26/10 DILATION AND CURETTAGE 83887 08/15/09 LAPAROSCOPIC CHOLECYSTECTOMY 51.23 03/26/10 LAPAROSCOPIC CHOLECYSTECTOMY 03236 03/26/10 Internal Medicine Assmt/Plan - Assessment Assessment: 1.HTN. 2.HYPERLIPIDEMIA. 2.DJD. 4.SCHIZOPHRENIA - Plan Plan: CONTINUE ON CURRENT MEDICATION AND DIET. Nutritional Asmnt/Malnutr-PDOC - Dietary Evaluation Malnutrition Findings (Please click <Entered> for more info): Nutritional Asmnt/Malnutrition Start: 03/20/19 14: 08 Text: Status: Complete Freq: Protocol: Document 03/20/19 14:08 ANGEL (Rec: 03/20/19 14:10 ANGEL [email or web address]) Nutritional Asmnt/Malnutrition Patient General Information Nutritional Screening Moderate Risk Diagnosis Psychosis Pertinent Medical Hx/Surgical Hx HTN, Hyperlipidemia, DJD, Schizophrenia Subjective Information Pt is a 63-year-old female admitted on 03/17 d/t. Pt is eating an estimated 95% of meals Per Meal/Nutrition Activity Record. Dietary is currently providing an estimated 2500 kcals and 110 gm Pro, per Pt PO intake this is providing an estimated 2400 kcals and 105gm Pro to meet 100+% kcal and 100+% Pro needs . Visited pt in room today, she still had lunch on her tray table. Pt had eaten the ice cream and drank the milk. Pt stated she just has a small appetite. She understands she is on an appetite stimulant and she does drink her Ensure. Nurse Samira stated she typically eats almost all of her meal trays and she may finish her tray with more time . As pt is exceeding estimated nutritional needs overall, Recommend Cardiac diet d/t Hx of HTN and Hyperlipidemia and BMI 37.31. Anthropometrics HT: 52 WT: 204 LB (92.73 kg) ABW: 135 LB (60.68 kg) BMI: 37.31 (Obese, class II) GI/ Skin Integrity GI: WNL, Soft, Non-tender BM: 03/19 x1 I/O: 1260/Not Noted Skin: WNL, Intact Leonid: 20 Diet Order: 2 GM NA, Ensure Enlive TID Estimated Energy Needs: (Obese , ABW) 4713-4272 kcals (20-25 kcals/ kg) 50-60g Pro (0.8-1.0 g/kg) 8928-0303 ml (25-30 ml/kg) Current Diet Order/ Nutrition Support 2 GM NA, Ensure Enlive TID Pertinent Medications Colace, Megace Pertinent Labs No labs charted/available. Nutritional Hx/Data Height 1.57 m Height (Calculated Centimeters) 157.5 Current Weight (lbs) 92.533 kg Weight (Calculated Kilograms) 92.5 Weight (Calculated Grams) 76370.8 [place] Body Weight 110 LB (50 kg) % [place] Body Weight 185 Body Mass Index (BMI) 37.3 Weight Status Obese GI Symptoms Last BM 03/19 x1 Skin Integrity/Comment: Skin: WNL, Intact Leonid: 20 Current %PO Good (75-100%) Estimated Nutritional Goals BEE in Kcals: Adj wt of IBW Calories/Kcals/Kg 20-25 Kcals Calculated 6139-1450 Protein: Adj wt of IBW Protein g/k.8-1.0 Protein Calculated 50-60 Fluid: ml 1266-6395 Nutritional Problem 1. Problem Problem Obesity Etiology r/t chronic energy overconsumption Signs/Symptoms: aeb BMI 37.31. Malnutrition Related to Morbid Obesity Malnutrition related to morbid obesity No Intervention/Recommendation Comments Recommend Cardiac diet d/t Hx of HTN and Hyperlipidemia and BMI 37.31. Expected Outcomes/Goals Expected Outcomes/Goals 1.PO intake to continue to meet >75% of estimated nutritional needs. 2.Monitor PO intake, wt, nutrition related labs, and skin integrity. 3.Gradual weight loss (0.5-1.0 LB/week) trending toward STACEY preferred. 4.F/U as low risk in 7-10 days , -03/30
--- NOTE | 2019-03-24 08:21 | Progress Notes ---
DATE: 03/24/2019 SUBJECTIVE: Chart reviewed and the patient interviewed. Also discussed the patient's condition with the staff and reviewed records and labs. The patient is still in irritable mood and she is still depressed and withdrawn. The patient also is interacting minimally with others. The patient also still needs redirections. Otherwise, the patient is compliant with taking her medications with no side effects of medications. ASSESSMENT: The patient is still depressed and confused. TREATMENT PLAN: We will continue to monitor her behavior and her condition closely. Also, continue adjusting psychotropic medications and work on behavioral modification. JOB# [id number]
[2019-03-24] MEDS: Benztropine 1 MG TAB PO SCH (08:40)
--- NOTE | 2019-03-24 20:25 | Internal Medicine Prog Note ---
Internal Medicine Subjective - Subjective Service Date: 03/24/19 Patient seen and examined:: without staff (SHE IS DOING BETTER) Patient is:: awake, verbal, confused Per staff patient has:: no adverse event Internal Medicine Objective - Physical Exam Vitals and I&O: Vital Signs Temp 97.8 F 03/24/19 19:58 Pulse 62 03/24/19 19:58 Resp 19 03/24/19 19:58 BP 105/68 03/24/19 19:58 Pulse Ox 98 03/24/19 19:58 Intake & Output 03/24/19 03/24/19 03/25/19 06:59 18:59 06:59 Intake Total 120 240 Balance 120 240 Intake: Oral 120 240 Other: # Voids 3 1 Active Medications: Current Medications Al Hydrox/Mg Hydrox/Simethicone (Maalox) 30 ml PO QID PRN PRN Reason: GI DISTRESS Stop: 05/16/19 01:48 Aripiprazole (Abilify) 5 mg PO QAM [facility]; Protocol Stop: 05/16/19 08:59 Last Admin: 03/24/19 08:40 Dose: 5 mg Benztropine Mesylate (Cogentin) 1 mg PO DAILY [facility] Stop: 05/16/19 08:59 Last Admin: 03/24/19 08:40 Dose: 1 mg Docusate Sodium (Colace) 250 mg PO DAILY [facility] Stop: 05/16/19 08:59 Last Admin: 03/24/19 08:40 Dose: 250 mg Escitalopram Oxalate (Lexapro) 20 mg PO DAILY [facility]; Protocol Stop: 05/16/19 08:59 Last Admin: 03/24/19 08:41 Dose: 20 mg Lorazepam (Ativan) 0.5 mg PO Q4HR PRN; Protocol PRN Reason: Anxiety Stop: 04/16/19 01:45 Megestrol Acetate (Megace) 400 mg PO BID [facility]; Protocol Stop: 05/17/19 08:59 Last Admin: 03/24/19 16:47 Dose: 400 mg Metoprolol Succinate (Toprol Xl) 25 mg PO DAILY [facility] Stop: 05/16/19 08:59 Last Admin: 03/24/19 08:40 Dose: 25 mg Mirtazapine (Remeron) 15 mg PO HS [facility]; Protocol Stop: 03/29/20 20:59 Last Admin: 03/24/19 20:17 Dose: 15 mg Simvastatin (Zocor) 20 mg PO HS [facility]; Protocol Stop: 05/16/19 20:59 Last Admin: 03/24/19 20:17 Dose: 20 mg Zolpidem Tartrate (Ambien) 5 mg PO HS PRN PRN Reason: Insomnia Stop: 05/16/19 01:45 Last Admin: 03/18/19 21:36 Dose: 5 mg General: demented HEENT: NC/AT, PERRLA, EOMI, anicteric sclerae, throat clear Neck: Supple, No JVD, No thyromegaly, +2 carotid pulse wo bruit, No LAD Lungs: CTAB Cardiovascular: RRR, Normal S1, Normal S2, without murmur Abdomen: soft, non-tender, non-distended Extremities: clear Neurological: no change - Procedures Procedures: Procedures Procedure Code Date ASPIR CURETT UTERUS NEC 69.59 08/15/09 COLONOSCOPY 45.23 03/26/10 DIAGNOSTIC COLONOSCOPY 29345 03/26/10 DILATION AND CURETTAGE 72227 08/15/09 LAPAROSCOPIC CHOLECYSTECTOMY 51.23 03/26/10 LAPAROSCOPIC CHOLECYSTECTOMY 68987 03/26/10 Internal Medicine Assmt/Plan - Assessment Assessment: 1.HTN. 2.HYPERLIPIDEMIA. 2.DJD. 4.SCHIZOPHRENIA - Plan Plan: CONTINUE ON CURRENT MEDICATION AND DIET. Nutritional Asmnt/Malnutr-PDOC - Dietary Evaluation Malnutrition Findings (Please click <Entered> for more info): Nutritional Asmnt/Malnutrition Start: 03/20/19 14: 08 Text: Status: Complete Freq: Protocol: Document 03/20/19 14:08 ANGEL (Rec: 03/20/19 14:10 ANGEL [email or web address]) Nutritional Asmnt/Malnutrition Patient General Information Nutritional Screening Moderate Risk Diagnosis Psychosis Pertinent Medical Hx/Surgical Hx HTN, Hyperlipidemia, DJD, Schizophrenia Subjective Information Pt is a 63-year-old female admitted on 03/17 d/t. Pt is eating an estimated 95% of meals Per Meal/Nutrition Activity Record. Dietary is currently providing an estimated 2500 kcals and 110 gm Pro, per Pt PO intake this is providing an estimated 2400 kcals and 105gm Pro to meet 100+% kcal and 100+% Pro needs . Visited pt in room today, she still had lunch on her tray table. Pt had eaten the ice cream and drank the milk. Pt stated she just has a small appetite. She understands she is on an appetite stimulant and she does drink her Ensure. Nurse Samira stated she typically eats almost all of her meal trays and she may finish her tray with more time . As pt is exceeding estimated nutritional needs overall, Recommend Cardiac diet d/t Hx of HTN and Hyperlipidemia and BMI 37.31. Anthropometrics HT: 52 WT: 204 LB (92.73 kg) ABW: 135 LB (60.68 kg) BMI: 37.31 (Obese, class II) GI/ Skin Integrity GI: WNL, Soft, Non-tender BM: 03/19 x1 I/O: 1260/Not Noted Skin: WNL, Intact Leonid: 20 Diet Order: 2 GM NA, Ensure Enlive TID Estimated Energy Needs: (Obese , ABW) 4253-6208 kcals (20-25 kcals/ kg) 50-60g Pro (0.8-1.0 g/kg) 7000-0729 ml (25-30 ml/kg) Current Diet Order/ Nutrition Support 2 GM NA, Ensure Enlive TID Pertinent Medications Colace, Megace Pertinent Labs No labs charted/available. Nutritional Hx/Data Height 1.57 m Height (Calculated Centimeters) 157.5 Current Weight (lbs) 92.533 kg Weight (Calculated Kilograms) 92.5 Weight (Calculated Grams) 80303.8 [place] Body Weight 110 LB (50 kg) % [place] Body Weight 185 Body Mass Index (BMI) 37.3 Weight Status Obese GI Symptoms Last BM 03/19 x1 Skin Integrity/Comment: Skin: WNL, Intact Leonid: 20 Current %PO Good (75-100%) Estimated Nutritional Goals BEE in Kcals: Adj wt of IBW Calories/Kcals/Kg 20-25 Kcals Calculated 5841-6916 Protein: Adj wt of IBW Protein g/k.8-1.0 Protein Calculated 50-60 Fluid: ml 9561-7103 Nutritional Problem 1. Problem Problem Obesity Etiology r/t chronic energy overconsumption Signs/Symptoms: aeb BMI 37.31. Malnutrition Related to Morbid Obesity Malnutrition related to morbid obesity No Intervention/Recommendation Comments Recommend Cardiac diet d/t Hx of HTN and Hyperlipidemia and BMI 37.31. Expected Outcomes/Goals Expected Outcomes/Goals 1.PO intake to continue to meet >75% of estimated nutritional needs. 2.Monitor PO intake, wt, nutrition related labs, and skin integrity. 3.Gradual weight loss (0.5-1.0 LB/week) trending toward STACEY preferred. 4.F/U as low risk in 7-10 days , -03/30
--- NOTE | 2019-03-24 23:38 | Progress Notes ---
DATE: SUBJECTIVE: Chart reviewed and the patient interviewed. Also discussed the patient's condition with the staff and reviewed records and labs. The patient continued to be easily agitated and she is still anxious and is still paranoid and suspicious. The patient also is still having severe mood swings and she still needs close monitoring. She also is still at times intrusive to others. Otherwise, easier to redirect her. ASSESSMENT: The patient is still psychotic and still needs close monitoring. TREATMENT PLAN: We will continue to monitor her behavior and her condition closely. Also, we will increase Seroquel to 100 mg twice a day and 200 mg at bedtime since it seems that Seroquel has been helping the patient slightly more. Also, continue to work on her behavior and her irritability and also discharge plans and placement issue. JOB# [id number]
[2019-03-25] MEDS: Benztropine 1 MG TAB PO SCH (08:55)
--- NOTE | 2019-03-25 12:52 | General Progress Note ---
Subjective - Review of Systems Service Date: 03/25/19 Subjective: resting comfortably no distress Objective - Physical Exam Vitals and I&O: Vital Signs Temp 96.9 F 03/25/19 06:09 Pulse 69 03/25/19 08:55 Resp 20 03/25/19 06:09 BP 118/74 03/25/19 08:55 Pulse Ox 99 03/25/19 06:09 Intake & Output 03/24/19 03/25/19 03/25/19 18:59 06:59 18:59 Intake Total 300 Balance 300 Intake: Oral 300 Other: # Voids 1 # Bowel Movements 0 Active Medications: Current Medications Al Hydrox/Mg Hydrox/Simethicone (Maalox) 30 ml PO QID PRN PRN Reason: GI DISTRESS Stop: 05/16/19 01:48 Aripiprazole (Abilify) 5 mg PO QAM [facility]; Protocol Stop: 05/16/19 08:59 Last Admin: 03/25/19 08:55 Dose: 5 mg Benztropine Mesylate (Cogentin) 1 mg PO DAILY [facility] Stop: 05/16/19 08:59 Last Admin: 03/25/19 08:55 Dose: 1 mg Docusate Sodium (Colace) 250 mg PO DAILY [facility] Stop: 05/16/19 08:59 Last Admin: 03/25/19 08:55 Dose: 250 mg Escitalopram Oxalate (Lexapro) 20 mg PO DAILY [facility]; Protocol Stop: 05/16/19 08:59 Last Admin: 03/25/19 08:55 Dose: 20 mg Lorazepam (Ativan) 0.5 mg PO Q4HR PRN; Protocol PRN Reason: Anxiety Stop: 04/16/19 01:45 Megestrol Acetate (Megace) 400 mg PO BID [facility]; Protocol Stop: 05/17/19 08:59 Last Admin: 03/25/19 08:58 Dose: 400 mg Metoprolol Succinate (Toprol Xl) 25 mg PO DAILY [facility] Stop: 05/16/19 08:59 Last Admin: 03/25/19 08:55 Dose: 25 mg Mirtazapine (Remeron) 15 mg PO HS [facility]; Protocol Stop: 05/21/19 20:59 Last Admin: 03/24/19 20:17 Dose: 15 mg Simvastatin (Zocor) 20 mg PO HS [facility]; Protocol Stop: 05/16/19 20:59 Last Admin: 03/24/19 20:17 Dose: 20 mg Zolpidem Tartrate (Ambien) 5 mg PO HS PRN PRN Reason: Insomnia Stop: 05/16/19 01:45 Last Admin: 03/18/19 21:36 Dose: 5 mg General: No acute distress HEENT: Atraumatic, PERRLA, EOMI Neck: Supple, JVD, Thyromegaly Cardiovascular: Regular rate, Normal S1, Normal S2 Lungs: Clear to auscultation Abdomen: Bowel sounds, Soft - Procedures Procedures: Procedures Procedure Code Date ASPIR CURETT UTERUS NEC 69.59 08/15/09 COLONOSCOPY 45.23 03/26/10 DIAGNOSTIC COLONOSCOPY 96021 03/26/10 DILATION AND CURETTAGE 08897 08/15/09 LAPAROSCOPIC CHOLECYSTECTOMY 51.23 03/26/10 LAPAROSCOPIC CHOLECYSTECTOMY 95015 03/26/10 Assessment/Plan - Assessment Assessment: 1.HTN. 2.HYPERLIPIDEMIA. 2.DJD. 4.SCHIZOPHRENIA - Plan Plan: continue current treatment Nutritional Asmnt/Malnutr-PDOC - Dietary Evaluation Malnutrition Findings (Please click <Entered> for more info): Nutritional Asmnt/Malnutrition Start: 03/20/19 14: 08 Text: Status: Complete Freq: Protocol: Document 03/20/19 14:08 ANGEL (Rec: 03/20/19 14:10 ANGEL [email or web address]) Nutritional Asmnt/Malnutrition Patient General Information Nutritional Screening Moderate Risk Diagnosis Psychosis Pertinent Medical Hx/Surgical Hx HTN, Hyperlipidemia, DJD, Schizophrenia Subjective Information Pt is a 63-year-old female admitted on 03/17 d/t. Pt is eating an estimated 95% of meals Per Meal/Nutrition Activity Record. Dietary is currently providing an estimated 2500 kcals and 110 gm Pro, per Pt PO intake this is providing an estimated 2400 kcals and 105gm Pro to meet 100+% kcal and 100+% Pro needs . Visited pt in room today, she still had lunch on her tray table. Pt had eaten the ice cream and drank the milk. Pt stated she just has a small appetite. She understands she is on an appetite stimulant and she does drink her Ensure. Nurse Samira stated she typically eats almost all of her meal trays and she may finish her tray with more time . As pt is exceeding estimated nutritional needs overall, Recommend Cardiac diet d/t Hx of HTN and Hyperlipidemia and BMI 37.31. Anthropometrics HT: 52 WT: 204 LB (92.73 kg) ABW: 135 LB (60.68 kg) BMI: 37.31 (Obese, class II) GI/ Skin Integrity GI: WNL, Soft, Non-tender BM: 03/19 x1 I/O: 1260/Not Noted Skin: WNL, Intact Leonid: 20 Diet Order: 2 GM NA, Ensure Enlive TID Estimated Energy Needs: (Obese , ABW) 7565-2672 kcals (20-25 kcals/ kg) 50-60g Pro (0.8-1.0 g/kg) 3720-6491 ml (25-30 ml/kg) Current Diet Order/ Nutrition Support 2 GM NA, Ensure Enlive TID Pertinent Medications Colace, Megace Pertinent Labs No labs charted/available. Nutritional Hx/Data Height 1.57 m Height (Calculated Centimeters) 157.5 Current Weight (lbs) 92.533 kg Weight (Calculated Kilograms) 92.5 Weight (Calculated Grams) 18568.8 [place] Body Weight 110 LB (50 kg) % [place] Body Weight 185 Body Mass Index (BMI) 37.3 Weight Status Obese GI Symptoms Last BM 03/19 x1 Skin Integrity/Comment: Skin: WNL, Intact Leonid: 20 Current %PO Good (75-100%) Estimated Nutritional Goals BEE in Kcals: Adj wt of IBW Calories/Kcals/Kg 20-25 Kcals Calculated 2485-9175 Protein: Adj wt of IBW Protein g/k.8-1.0 Protein Calculated 50-60 Fluid: ml 7015-2003 Nutritional Problem 1. Problem Problem Obesity Etiology r/t chronic energy overconsumption Signs/Symptoms: aeb BMI 37.31. Malnutrition Related to Morbid Obesity Malnutrition related to morbid obesity No Intervention/Recommendation Comments Recommend Cardiac diet d/t Hx of HTN and Hyperlipidemia and BMI 37.31. Expected Outcomes/Goals Expected Outcomes/Goals 1.PO intake to continue to meet >75% of estimated nutritional needs. 2.Monitor PO intake, wt, nutrition related labs, and skin integrity. 3.Gradual weight loss (0.5-1.0 LB/week) trending toward STACEY preferred. 4.F/U as low risk in 7-10 days , 1/2/3-2/6
--- NOTE | 2019-03-25 18:14 | Psych Progress Note ---
Psych Progress Note - Intro Date of Progress Note: 03/25/19 - Assessment Assessment: Patient interviewed, case discussed with staff, chart and records were reviewed. Dr. Adames covering for Dr. Vo. The patient was pleasant during interview this morning somewhat confused and limited cooperation. However, per staff reports the patient has severe mood swings agitation episodes needs constant redirection and her behaviors and mood fluctuate with a significant amount of degree. No side effects of been noted to the medication. - Vitals, I&O Vitals: Vital Signs - 24 hr 03/24/19 03/25/19 03/25/19 19:58 06:09 08:55 Temp 97.8 F 96.9 F HR 62 56 69 RR 19 20 BP 105/68 113/73 118/74 O2 Sat % 98 99 03/25/19 15:07 Temp 97.4 F HR 72 RR 18 BP 105/67 O2 Sat % 95 - Plan Plan: Continue current treatment plan and monitor for behavior. - Review of Relevant Data Review of Relevant Data: I have reviewed the following items and time meghann (where applicable) has been applied. - Medications Current Medications: Current Medications Al Hydrox/Mg Hydrox/Simethicone (Maalox) 30 ml PO QID PRN PRN Reason: GI DISTRESS Stop: 05/16/19 01:48 Aripiprazole (Abilify) 5 mg PO QAM [facility]; Protocol Stop: 05/16/19 08:59 Last Admin: 03/25/19 08:55 Dose: 5 mg Benztropine Mesylate (Cogentin) 1 mg PO DAILY [facility] Stop: 05/16/19 08:59 Last Admin: 03/25/19 08:55 Dose: 1 mg Docusate Sodium (Colace) 250 mg PO DAILY [facility] Stop: 05/16/19 08:59 Last Admin: 03/25/19 08:55 Dose: 250 mg Escitalopram Oxalate (Lexapro) 20 mg PO DAILY [facility]; Protocol Stop: 05/16/19 08:59 Last Admin: 03/25/19 08:55 Dose: 20 mg Lorazepam (Ativan) 0.5 mg PO Q4HR PRN; Protocol PRN Reason: Anxiety Stop: 04/16/19 01:45 Megestrol Acetate (Megace) 400 mg PO BID [facility]; Protocol Stop: 05/17/19 08:59 Last Admin: 03/25/19 17:21 Dose: 400 mg Metoprolol Succinate (Toprol Xl) 25 mg PO DAILY [facility] Stop: 05/16/19 08:59 Last Admin: 03/25/19 08:55 Dose: 25 mg Mirtazapine (Remeron) 15 mg PO HS [facility]; Protocol Stop: 05/21/19 20:59 Last Admin: 03/24/19 20:17 Dose: 15 mg Simvastatin (Zocor) 20 mg PO HS [facility]; Protocol Stop: 05/16/19 20:59 Last Admin: 03/24/19 20:17 Dose: 20 mg Zolpidem Tartrate (Ambien) 5 mg PO HS PRN PRN Reason: Insomnia Stop: 05/16/19 01:45 Last Admin: 03/18/19 21:36 Dose: 5 mg
--- NOTE | 2019-03-26 07:54 | Progress Notes ---
DATE: 03/26/2019 SUBJECTIVE: The patient in the hospital, easily agitated, anxious, still paranoid, somewhat suspicious, severe mood swings, needing a lot of close monitoring, ongoing symptoms, safety concerns. Sleeping, but arousable, not really talk to me much this morning. Slept for about 6 hours. Difficult to fully assess. Medications were noted. Currently on dosing of Lexapro, Abilify. PLAN: We will continue to monitor. Discussed with staff. JOB# [id number]
[2019-03-26] MEDS: Benztropine 1 MG TAB PO SCH (08:37)
--- NOTE | 2019-03-26 12:44 | General Progress Note ---
Subjective - Review of Systems Service Date: 03/26/19 Subjective: resting comfortably no distress Objective - Physical Exam Vitals and I&O: Vital Signs Temp 97.3 F 03/26/19 05:55 Pulse 66 03/26/19 08:38 Resp 20 03/26/19 05:55 BP 105/62 03/26/19 08:38 Pulse Ox 96 03/26/19 05:55 Intake & Output 03/25/19 03/26/19 03/26/19 18:59 06:59 18:59 Intake Total 900 360 Balance 900 360 Intake: Oral 900 360 Other: # Voids 1 # Bowel Movements 0 Active Medications: Current Medications Al Hydrox/Mg Hydrox/Simethicone (Maalox) 30 ml PO QID PRN PRN Reason: GI DISTRESS Stop: 05/16/19 01:48 Aripiprazole (Abilify) 5 mg PO QAM [facility]; Protocol Stop: 05/16/19 08:59 Last Admin: 03/26/19 08:38 Dose: 5 mg Benztropine Mesylate (Cogentin) 1 mg PO DAILY [facility] Stop: 05/16/19 08:59 Last Admin: 03/26/19 08:37 Dose: 1 mg Docusate Sodium (Colace) 250 mg PO DAILY [facility] Stop: 05/16/19 08:59 Last Admin: 03/26/19 08:38 Dose: 250 mg Escitalopram Oxalate (Lexapro) 20 mg PO DAILY [facility]; Protocol Stop: 05/16/19 08:59 Last Admin: 03/26/19 08:37 Dose: 20 mg Lorazepam (Ativan) 0.5 mg PO Q4HR PRN; Protocol PRN Reason: Anxiety Stop: 04/16/19 01:45 Megestrol Acetate (Megace) 400 mg PO BID [facility]; Protocol Stop: 05/17/19 08:59 Last Admin: 03/26/19 08:37 Dose: 400 mg Metoprolol Succinate (Toprol Xl) 25 mg PO DAILY [facility] Stop: 05/16/19 08:59 Last Admin: 03/26/19 08:38 Dose: 25 mg Mirtazapine (Remeron) 15 mg PO HS [facility]; Protocol Stop: 05/21/19 20:59 Last Admin: 03/25/19 21:13 Dose: 15 mg Simvastatin (Zocor) 20 mg PO HS [facility]; Protocol Stop: 05/16/19 20:59 Last Admin: 03/25/19 21:13 Dose: 20 mg Zolpidem Tartrate (Ambien) 5 mg PO HS PRN PRN Reason: Insomnia Stop: 05/16/19 01:45 Last Admin: 03/18/19 21:36 Dose: 5 mg General: No acute distress HEENT: Atraumatic, PERRLA, EOMI Neck: Supple, JVD, Thyromegaly Cardiovascular: Regular rate, Normal S1, Normal S2 Lungs: Clear to auscultation Abdomen: Bowel sounds, Soft - Procedures Procedures: Procedures Procedure Code Date ASPIR CURETT UTERUS NEC 69.59 08/15/09 COLONOSCOPY 45.23 03/26/10 DIAGNOSTIC COLONOSCOPY 68015 03/26/10 DILATION AND CURETTAGE 29241 08/15/09 LAPAROSCOPIC CHOLECYSTECTOMY 51.23 03/26/10 LAPAROSCOPIC CHOLECYSTECTOMY 19467 03/26/10 Assessment/Plan - Assessment Assessment: 1.HTN. 2.HYPERLIPIDEMIA. 2.DJD. 4.SCHIZOPHRENIA - Plan Plan: continue current treatment Nutritional Asmnt/Malnutr-PDOC - Dietary Evaluation Malnutrition Findings (Please click <Entered> for more info): Nutritional Asmnt/Malnutrition Start: 03/20/19 14: 08 Text: Status: Complete Freq: Protocol: Document 03/20/19 14:08 ANGEL (Rec: 03/20/19 14:10 ANGEL [email or web address]) Nutritional Asmnt/Malnutrition Patient General Information Nutritional Screening Moderate Risk Diagnosis Psychosis Pertinent Medical Hx/Surgical Hx HTN, Hyperlipidemia, DJD, Schizophrenia Subjective Information Pt is a 63-year-old female admitted on 03/17 d/t. Pt is eating an estimated 95% of meals Per Meal/Nutrition Activity Record. Dietary is currently providing an estimated 2500 kcals and 110 gm Pro, per Pt PO intake this is providing an estimated 2400 kcals and 105gm Pro to meet 100+% kcal and 100+% Pro needs . Visited pt in room today, she still had lunch on her tray table. Pt had eaten the ice cream and drank the milk. Pt stated she just has a small appetite. She understands she is on an appetite stimulant and she does drink her Ensure. Nurse Samira stated she typically eats almost all of her meal trays and she may finish her tray with more time . As pt is exceeding estimated nutritional needs overall, Recommend Cardiac diet d/t Hx of HTN and Hyperlipidemia and BMI 37.31. Anthropometrics HT: 52 WT: 204 LB (92.73 kg) ABW: 135 LB (60.68 kg) BMI: 37.31 (Obese, class II) GI/ Skin Integrity GI: WNL, Soft, Non-tender BM: 03/19 x1 I/O: 1260/Not Noted Skin: WNL, Intact Leonid: 20 Diet Order: 2 GM NA, Ensure Enlive TID Estimated Energy Needs: (Obese , ABW) 4010-0693 kcals (20-25 kcals/ kg) 50-60g Pro (0.8-1.0 g/kg) 7448-8524 ml (25-30 ml/kg) Current Diet Order/ Nutrition Support 2 GM NA, Ensure Enlive TID Pertinent Medications Colace, Megace Pertinent Labs No labs charted/available. Nutritional Hx/Data Height 1.57 m Height (Calculated Centimeters) 157.5 Current Weight (lbs) 92.533 kg Weight (Calculated Kilograms) 92.5 Weight (Calculated Grams) 32391.8 [place] Body Weight 110 LB (50 kg) % [place] Body Weight 185 Body Mass Index (BMI) 37.3 Weight Status Obese GI Symptoms Last BM 03/19 x1 Skin Integrity/Comment: Skin: WNL, Intact Leonid: 20 Current %PO Good (75-100%) Estimated Nutritional Goals BEE in Kcals: Adj wt of IBW Calories/Kcals/Kg 20-25 Kcals Calculated 7814-4461 Protein: Adj wt of IBW Protein g/k.8-1.0 Protein Calculated 50-60 Fluid: ml 0364-6309 Nutritional Problem 1. Problem Problem Obesity Etiology r/t chronic energy overconsumption Signs/Symptoms: aeb BMI 37.31. Malnutrition Related to Morbid Obesity Malnutrition related to morbid obesity No Intervention/Recommendation Comments Recommend Cardiac diet d/t Hx of HTN and Hyperlipidemia and BMI 37.31. Expected Outcomes/Goals Expected Outcomes/Goals 1.PO intake to continue to meet >75% of estimated nutritional needs. 2.Monitor PO intake, wt, nutrition related labs, and skin integrity. 3.Gradual weight loss (0.5-1.0 LB/week) trending toward STACEY preferred. 4.F/U as low risk in 7-10 days , 1/2/3-/
[2019-03-27] MEDS: Benztropine 1 MG TAB PO SCH (08:35)
[2019-03-27 16:06] VITALS: BP 115/79
--- NOTE | 2019-03-27 20:02 | Internal Medicine Prog Note ---
Internal Medicine Subjective - Subjective Service Date: 03/27/19 Patient seen and examined:: without staff (SHE IS DOING WELL) Patient is:: awake, verbal, confused Per staff patient has:: no adverse event Internal Medicine Objective - Physical Exam Vitals and I&O: Vital Signs Temp 97.5 F 03/27/19 13:59 Pulse 77 03/27/19 13:59 Resp 20 03/27/19 13:59 BP 108/67 03/27/19 13:59 Pulse Ox 97 03/27/19 13:59 Intake & Output 03/27/19 03/27/19 03/28/19 06:59 18:59 06:59 Intake Total 240 Balance 240 Intake: Oral 240 Other: # Voids 3 3 # Bowel Movements 0 1 Active Medications: Current Medications Al Hydrox/Mg Hydrox/Simethicone (Maalox) 30 ml PO QID PRN PRN Reason: GI DISTRESS Stop: 05/16/19 01:48 Aripiprazole (Abilify) 5 mg PO QAM [facility]; Protocol Stop: 05/16/19 08:59 Last Admin: 03/27/19 08:35 Dose: 5 mg Benztropine Mesylate (Cogentin) 1 mg PO DAILY [facility] Stop: 05/16/19 08:59 Last Admin: 03/27/19 08:35 Dose: 1 mg Docusate Sodium (Colace) 250 mg PO DAILY [facility] Stop: 05/16/19 08:59 Last Admin: 03/27/19 08:35 Dose: 250 mg Escitalopram Oxalate (Lexapro) 20 mg PO DAILY [facility]; Protocol Stop: 05/16/19 08:59 Last Admin: 03/27/19 08:35 Dose: 20 mg Lorazepam (Ativan) 0.5 mg PO Q4HR PRN; Protocol PRN Reason: Anxiety Stop: 04/16/19 01:45 Megestrol Acetate (Megace) 400 mg PO BID [facility]; Protocol Stop: 05/17/19 08:59 Last Admin: 03/27/19 16:11 Dose: 400 mg Metoprolol Succinate (Toprol Xl) 25 mg PO DAILY [facility] Stop: 05/16/19 08:59 Last Admin: 03/27/19 08:35 Dose: 25 mg Mirtazapine (Remeron) 15 mg PO HS [facility]; Protocol Stop: 05/21/19 20:59 Last Admin: 03/26/19 21:06 Dose: 15 mg Simvastatin (Zocor) 20 mg PO HS [facility]; Protocol Stop: 05/16/19 20:59 Last Admin: 03/26/19 21:06 Dose: 20 mg Zolpidem Tartrate (Ambien) 5 mg PO HS PRN PRN Reason: Insomnia Stop: 05/16/19 01:45 Last Admin: 03/18/19 21:36 Dose: 5 mg General: demented HEENT: NC/AT, PERRLA, EOMI, anicteric sclerae, throat clear Neck: Supple, No JVD, No thyromegaly, +2 carotid pulse wo bruit, No LAD Lungs: CTAB Cardiovascular: RRR, Normal S1, Normal S2, without murmur Abdomen: soft, non-tender, non-distended Extremities: clear Neurological: no change - Procedures Procedures: Procedures Procedure Code Date ASPIR CURETT UTERUS NEC 69.59 08/15/09 COLONOSCOPY 45.23 03/26/10 DIAGNOSTIC COLONOSCOPY 06126 03/26/10 DILATION AND CURETTAGE 15222 08/15/09 LAPAROSCOPIC CHOLECYSTECTOMY 51.23 03/26/10 LAPAROSCOPIC CHOLECYSTECTOMY 08723 03/26/10 Internal Medicine Assmt/Plan - Assessment Assessment: 1.HTN. 2.HYPERLIPIDEMIA. 2.DJD. 4.SCHIZOPHRENIA - Plan Plan: CONTINUE ON CURRENT MEDICATION AND DIET. Nutritional Asmnt/Malnutr-PDOC - Dietary Evaluation Malnutrition Findings (Please click <Entered> for more info): Nutritional Asmnt/Malnutrition Start: 03/20/19 14: 08 Text: Status: Complete Freq: Protocol: Document 03/20/19 14:08 ANGEL (Rec: 03/20/19 14:10 ANGEL [email or web address]) Nutritional Asmnt/Malnutrition Patient General Information Nutritional Screening Moderate Risk Diagnosis Psychosis Pertinent Medical Hx/Surgical Hx HTN, Hyperlipidemia, DJD, Schizophrenia Subjective Information Pt is a 63-year-old female admitted on 03/17 d/t. Pt is eating an estimated 95% of meals Per Meal/Nutrition Activity Record. Dietary is currently providing an estimated 2500 kcals and 110 gm Pro, per Pt PO intake this is providing an estimated 2400 kcals and 105gm Pro to meet 100+% kcal and 100+% Pro needs . Visited pt in room today, she still had lunch on her tray table. Pt had eaten the ice cream and drank the milk. Pt stated she just has a small appetite. She understands she is on an appetite stimulant and she does drink her Ensure. Nurse Samira stated she typically eats almost all of her meal trays and she may finish her tray with more time . As pt is exceeding estimated nutritional needs overall, Recommend Cardiac diet d/t Hx of HTN and Hyperlipidemia and BMI 37.31. Anthropometrics HT: 52 WT: 204 LB (92.73 kg) ABW: 135 LB (60.68 kg) BMI: 37.31 (Obese, class II) GI/ Skin Integrity GI: WNL, Soft, Non-tender BM: 03/19 x1 I/O: 1260/Not Noted Skin: WNL, Intact Leonid: 20 Diet Order: 2 GM NA, Ensure Enlive TID Estimated Energy Needs: (Obese , ABW) 7854-9215 kcals (20-25 kcals/ kg) 50-60g Pro (0.8-1.0 g/kg) 2668-3578 ml (25-30 ml/kg) Current Diet Order/ Nutrition Support 2 GM NA, Ensure Enlive TID Pertinent Medications Colace, Megace Pertinent Labs No labs charted/available. Nutritional Hx/Data Height 1.57 m Height (Calculated Centimeters) 157.5 Current Weight (lbs) 92.533 kg Weight (Calculated Kilograms) 92.5 Weight (Calculated Grams) 65912.8 [place] Body Weight 110 LB (50 kg) % [place] Body Weight 185 Body Mass Index (BMI) 37.3 Weight Status Obese GI Symptoms Last BM 03/19 x1 Skin Integrity/Comment: Skin: WNL, Intact Leonid: 20 Current %PO Good (75-100%) Estimated Nutritional Goals BEE in Kcals: Adj wt of IBW Calories/Kcals/Kg 20-25 Kcals Calculated 5429-9598 Protein: Adj wt of IBW Protein g/k.8-1.0 Protein Calculated 50-60 Fluid: ml 3038-6209 Nutritional Problem 1. Problem Problem Obesity Etiology r/t chronic energy overconsumption Signs/Symptoms: aeb BMI 37.31. Malnutrition Related to Morbid Obesity Malnutrition related to morbid obesity No Intervention/Recommendation Comments Recommend Cardiac diet d/t Hx of HTN and Hyperlipidemia and BMI 37.31. Expected Outcomes/Goals Expected Outcomes/Goals 1.PO intake to continue to meet >75% of estimated nutritional needs. 2.Monitor PO intake, wt, nutrition related labs, and skin integrity. 3.Gradual weight loss (0.5-1.0 LB/week) trending toward STACEY preferred. 4.F/U as low risk in 7-10 days , -03/30
--- NOTE | 2019-03-28 09:18 | Progress Notes ---
DATE: SUBJECTIVE: Chart was reviewed and the patient interviewed. Also discussed the patient's condition with the staff and reviewed records and labs. The patient is still anxious and is still in a depressed mood. The patient also is still isolative and withdrawn and interacting minimally with others. The patient also still wants to be left alone. Otherwise, the patient is compliant with taking her medications with no side effects of medications. ASSESSMENT: The patient is still depressed and showing minimum interactions. TREATMENT PLAN: Continue to monitor behavior and condition closely. Also, we will continue to work on her ineffective coping and followup. JOB# [id number]
[2019-03-28] MEDS: Benztropine 1 MG TAB PO SCH (09:46)
--- NOTE | 2019-03-28 17:05 | Progress Notes ---
DATE: SUBJECTIVE: Chart reviewed and the patient interviewed. Also discussed the patient's condition with the staff and reviewed records and labs. The patient is still selectively mute and is still anxious and withdrawn. The patient also is still suspicious and is still guarded. She also still has difficulty with her mood. She wants to be left alone and still isolates herself. Otherwise, the patient continued to comply with taking her medications with no side effects. ASSESSMENT: The patient is still depressed and is still withdrawn and guarded. TREATMENT PLAN: Continue to monitor his behavior and condition closely. Also, we will increase Abilify to 10 mg every day. Also, continue to work on her irritability and on her paranoia and continue to follow up closely. JOB# [id number]
--- NOTE | 2019-03-28 21:53 | Internal Medicine Prog Note ---
Internal Medicine Subjective - Subjective Service Date: 03/28/19 Patient seen and examined:: without staff (SHE FEELS GOOD) Patient is:: awake, verbal, confused Per staff patient has:: no adverse event Internal Medicine Objective - Physical Exam Vitals and I&O: Vital Signs Temp 97.7 F 03/28/19 20:00 Pulse 67 03/28/19 20:00 Resp 19 03/28/19 20:00 BP 131/70 03/28/19 20:00 Pulse Ox 97 03/28/19 20:00 Intake & Output 03/28/19 03/28/19 03/29/19 06:59 18:59 06:59 Intake Total 120 900 Balance 120 900 Intake: Oral 120 900 Other: # Voids 3 3 # Bowel Movements 0 1 Active Medications: Current Medications Al Hydrox/Mg Hydrox/Simethicone (Maalox) 30 ml PO QID PRN PRN Reason: GI DISTRESS Stop: 05/16/19 01:48 Aripiprazole (Abilify) 10 mg PO QAM [facility]; Protocol Stop: 05/27/19 08:59 Last Admin: 03/28/19 09:45 Dose: 10 mg Benztropine Mesylate (Cogentin) 1 mg PO DAILY [facility] Stop: 05/16/19 08:59 Last Admin: 03/28/19 09:46 Dose: 1 mg Docusate Sodium (Colace) 250 mg PO DAILY [facility] Stop: 05/16/19 08:59 Last Admin: 03/28/19 09:45 Dose: 250 mg Escitalopram Oxalate (Lexapro) 20 mg PO DAILY [facility]; Protocol Stop: 05/16/19 08:59 Last Admin: 03/28/19 09:44 Dose: 20 mg Lorazepam (Ativan) 0.5 mg PO Q4HR PRN; Protocol PRN Reason: Anxiety Stop: 04/16/19 01:45 Megestrol Acetate (Megace) 400 mg PO BID [facility]; Protocol Stop: 05/17/19 08:59 Last Admin: 03/28/19 17:39 Dose: 400 mg Metoprolol Succinate (Toprol Xl) 25 mg PO DAILY [facility] Stop: 05/16/19 08:59 Last Admin: 03/28/19 09:45 Dose: 25 mg Mirtazapine (Remeron) 15 mg PO HS [facility]; Protocol Stop: 05/21/19 20:59 Last Admin: 03/28/19 20:49 Dose: 15 mg Simvastatin (Zocor) 20 mg PO HS [facility]; Protocol Stop: 05/16/19 20:59 Last Admin: 03/28/19 20:48 Dose: 20 mg Zolpidem Tartrate (Ambien) 5 mg PO HS PRN PRN Reason: Insomnia Stop: 05/16/19 01:45 Last Admin: 03/18/19 21:36 Dose: 5 mg General: demented HEENT: NC/AT, PERRLA, EOMI, anicteric sclerae, throat clear Neck: Supple, No JVD, No thyromegaly, +2 carotid pulse wo bruit, No LAD Lungs: CTAB Cardiovascular: RRR, Normal S1, Normal S2, without murmur Abdomen: soft, non-tender, non-distended Extremities: clear Neurological: no change - Procedures Procedures: Procedures Procedure Code Date ASPIR CURETT UTERUS NEC 69.59 08/15/09 COLONOSCOPY 45.23 03/26/10 DIAGNOSTIC COLONOSCOPY 87260 03/26/10 DILATION AND CURETTAGE 80243 08/15/09 LAPAROSCOPIC CHOLECYSTECTOMY 51.23 03/26/10 LAPAROSCOPIC CHOLECYSTECTOMY 87604 03/26/10 Internal Medicine Assmt/Plan - Assessment Assessment: 1.HTN. 2.HYPERLIPIDEMIA. 2.DJD. 4.SCHIZOPHRENIA - Plan Plan: CONTINUE ON CURRENT MEDICATION AND DIET. Nutritional Asmnt/Malnutr-PDOC - Dietary Evaluation Malnutrition Findings (Please click <Entered> for more info): Nutritional Asmnt/Malnutrition Start: 03/20/19 14: 08 Text: Status: Complete Freq: Protocol: Document 03/20/19 14:08 ANGEL (Rec: 03/20/19 14:10 ANGEL [email or web address]) Nutritional Asmnt/Malnutrition Patient General Information Nutritional Screening Moderate Risk Diagnosis Psychosis Pertinent Medical Hx/Surgical Hx HTN, Hyperlipidemia, DJD, Schizophrenia Subjective Information Pt is a 63-year-old female admitted on 03/17 d/t. Pt is eating an estimated 95% of meals Per Meal/Nutrition Activity Record. Dietary is currently providing an estimated 2500 kcals and 110 gm Pro, per Pt PO intake this is providing an estimated 2400 kcals and 105gm Pro to meet 100+% kcal and 100+% Pro needs . Visited pt in room today, she still had lunch on her tray table. Pt had eaten the ice cream and drank the milk. Pt stated she just has a small appetite. She understands she is on an appetite stimulant and she does drink her Ensure. Nurse Samira stated she typically eats almost all of her meal trays and she may finish her tray with more time . As pt is exceeding estimated nutritional needs overall, Recommend Cardiac diet d/t Hx of HTN and Hyperlipidemia and BMI 37.31. Anthropometrics HT: 52 WT: 204 LB (92.73 kg) ABW: 135 LB (60.68 kg) BMI: 37.31 (Obese, class II) GI/ Skin Integrity GI: WNL, Soft, Non-tender BM: 03/19 x1 I/O: 1260/Not Noted Skin: WNL, Intact Leonid: 20 Diet Order: 2 GM NA, Ensure Enlive TID Estimated Energy Needs: (Obese , ABW) 9014-5755 kcals (20-25 kcals/ kg) 50-60g Pro (0.8-1.0 g/kg) 4096-2816 ml (25-30 ml/kg) Current Diet Order/ Nutrition Support 2 GM NA, Ensure Enlive TID Pertinent Medications Colace, Megace Pertinent Labs No labs charted/available. Nutritional Hx/Data Height 1.57 m Height (Calculated Centimeters) 157.5 Current Weight (lbs) 92.533 kg Weight (Calculated Kilograms) 92.5 Weight (Calculated Grams) 12646.8 [place] Body Weight 110 LB (50 kg) % [place] Body Weight 185 Body Mass Index (BMI) 37.3 Weight Status Obese GI Symptoms Last BM 03/19 x1 Skin Integrity/Comment: Skin: WNL, Intact Leonid: 20 Current %PO Good (75-100%) Estimated Nutritional Goals BEE in Kcals: Adj wt of IBW Calories/Kcals/Kg 20-25 Kcals Calculated 1271-7979 Protein: Adj wt of IBW Protein g/k.8-1.0 Protein Calculated 50-60 Fluid: ml 0507-7642 Nutritional Problem 1. Problem Problem Obesity Etiology r/t chronic energy overconsumption Signs/Symptoms: aeb BMI 37.31. Malnutrition Related to Morbid Obesity Malnutrition related to morbid obesity No Intervention/Recommendation Comments Recommend Cardiac diet d/t Hx of HTN and Hyperlipidemia and BMI 37.31. Expected Outcomes/Goals Expected Outcomes/Goals 1.PO intake to continue to meet >75% of estimated nutritional needs. 2.Monitor PO intake, wt, nutrition related labs, and skin integrity. 3.Gradual weight loss (0.5-1.0 LB/week) trending toward STACEY preferred. 4.F/U as low risk in 7-10 days , -03/30
[2019-03-29] MEDS: Benztropine 1 MG TAB PO SCH (09:58)
--- NOTE | 2019-03-29 19:35 | Internal Medicine Prog Note ---
Internal Medicine Subjective - Subjective Service Date: 03/29/19 Patient seen and examined:: without staff (SHE IS EATING WELL) Patient is:: awake, verbal, confused Per staff patient has:: no adverse event Internal Medicine Objective - Physical Exam Vitals and I&O: Vital Signs Temp 98.1 F 03/29/19 14:14 Pulse 74 03/29/19 14:14 Resp 20 03/29/19 14:14 BP 125/71 03/29/19 14:14 Pulse Ox 95 03/29/19 14:14 Intake & Output 03/29/19 03/29/19 03/30/19 06:59 18:59 06:59 Intake Total 120 Balance 120 Intake: Oral 120 Other: # Voids 3 Stool Characteristics Soft Formed Brown Active Medications: Current Medications Al Hydrox/Mg Hydrox/Simethicone (Maalox) 30 ml PO QID PRN PRN Reason: GI DISTRESS Stop: 05/16/19 01:48 Aripiprazole (Abilify) 10 mg PO QAM [facility]; Protocol Stop: 05/27/19 08:59 Last Admin: 03/29/19 10:00 Dose: 10 mg Benztropine Mesylate (Cogentin) 1 mg PO DAILY [facility] Stop: 05/16/19 08:59 Last Admin: 03/29/19 09:58 Dose: 1 mg Docusate Sodium (Colace) 250 mg PO DAILY [facility] Stop: 05/16/19 08:59 Last Admin: 03/29/19 09:58 Dose: 250 mg Escitalopram Oxalate (Lexapro) 20 mg PO DAILY [facility]; Protocol Stop: 05/16/19 08:59 Last Admin: 03/29/19 09:58 Dose: 20 mg Lorazepam (Ativan) 0.5 mg PO Q4HR PRN; Protocol PRN Reason: Anxiety Stop: 04/16/19 01:45 Metoprolol Succinate (Toprol Xl) 25 mg PO DAILY [facility] Stop: 05/16/19 08:59 Last Admin: 03/29/19 09:57 Dose: Not Given Mirtazapine (Remeron) 15 mg PO HS [facility]; Protocol Stop: 05/21/19 20:59 Last Admin: 03/28/19 20:49 Dose: 15 mg Simvastatin (Zocor) 20 mg PO HS [facility]; Protocol Stop: 05/16/19 20:59 Last Admin: 03/28/19 20:48 Dose: 20 mg Zolpidem Tartrate (Ambien) 5 mg PO HS PRN PRN Reason: Insomnia Stop: 05/16/19 01:45 Last Admin: 03/18/19 21:36 Dose: 5 mg General: demented HEENT: NC/AT, PERRLA, EOMI, anicteric sclerae, throat clear Neck: Supple, No JVD, No thyromegaly, +2 carotid pulse wo bruit, No LAD Lungs: CTAB Cardiovascular: RRR, Normal S1, Normal S2, without murmur Abdomen: soft, non-tender, non-distended Extremities: clear Neurological: no change - Procedures Procedures: Procedures Procedure Code Date ASPIR CURETT UTERUS NEC 69.59 08/15/09 COLONOSCOPY 45.23 03/26/10 DIAGNOSTIC COLONOSCOPY 60701 03/26/10 DILATION AND CURETTAGE 65298 08/15/09 LAPAROSCOPIC CHOLECYSTECTOMY 51.23 03/26/10 LAPAROSCOPIC CHOLECYSTECTOMY 56667 03/26/10 Internal Medicine Assmt/Plan - Assessment Assessment: 1.HTN. 2.HYPERLIPIDEMIA. 2.DJD. 4.SCHIZOPHRENIA - Plan Plan: CONTINUE ON CURRENT MEDICATION AND DIET. Nutritional Asmnt/Malnutr-PDOC - Dietary Evaluation Malnutrition Findings (Please click <Entered> for more info): Nutritional Asmnt/Malnutrition Start: 03/20/19 14: 08 Text: Status: Complete Freq: Protocol: Document 03/20/19 14:08 ANGEL (Rec: 03/20/19 14:10 ANGEL [email or web address]) Nutritional Asmnt/Malnutrition Patient General Information Nutritional Screening Moderate Risk Diagnosis Psychosis Pertinent Medical Hx/Surgical Hx HTN, Hyperlipidemia, DJD, Schizophrenia Subjective Information Pt is a 63-year-old female admitted on 03/17 d/t. Pt is eating an estimated 95% of meals Per Meal/Nutrition Activity Record. Dietary is currently providing an estimated 2500 kcals and 110 gm Pro, per Pt PO intake this is providing an estimated 2400 kcals and 105gm Pro to meet 100+% kcal and 100+% Pro needs . Visited pt in room today, she still had lunch on her tray table. Pt had eaten the ice cream and drank the milk. Pt stated she just has a small appetite. She understands she is on an appetite stimulant and she does drink her Ensure. Nurse Samira stated she typically eats almost all of her meal trays and she may finish her tray with more time . As pt is exceeding estimated nutritional needs overall, Recommend Cardiac diet d/t Hx of HTN and Hyperlipidemia and BMI 37.31. Anthropometrics HT: 52 WT: 204 LB (92.73 kg) ABW: 135 LB (60.68 kg) BMI: 37.31 (Obese, class II) GI/ Skin Integrity GI: WNL, Soft, Non-tender BM: 03/19 x1 I/O: 1260/Not Noted Skin: WNL, Intact Leonid: 20 Diet Order: 2 GM NA, Ensure Enlive TID Estimated Energy Needs: (Obese , ABW) 2379-0651 kcals (20-25 kcals/ kg) 50-60g Pro (0.8-1.0 g/kg) 8582-0671 ml (25-30 ml/kg) Current Diet Order/ Nutrition Support 2 GM NA, Ensure Enlive TID Pertinent Medications Colace, Megace Pertinent Labs No labs charted/available. Nutritional Hx/Data Height 1.57 m Height (Calculated Centimeters) 157.5 Current Weight (lbs) 92.533 kg Weight (Calculated Kilograms) 92.5 Weight (Calculated Grams) 62741.8 [place] Body Weight 110 LB (50 kg) % [place] Body Weight 185 Body Mass Index (BMI) 37.3 Weight Status Obese GI Symptoms Last BM 03/19 x1 Skin Integrity/Comment: Skin: WNL, Intact Leonid: 20 Current %PO Good (75-100%) Estimated Nutritional Goals BEE in Kcals: Adj wt of IBW Calories/Kcals/Kg 20-25 Kcals Calculated 2695-2352 Protein: Adj wt of IBW Protein g/k.8-1.0 Protein Calculated 50-60 Fluid: ml 3108-8811 Nutritional Problem 1. Problem Problem Obesity Etiology r/t chronic energy overconsumption Signs/Symptoms: aeb BMI 37.31. Malnutrition Related to Morbid Obesity Malnutrition related to morbid obesity No Intervention/Recommendation Comments Recommend Cardiac diet d/t Hx of HTN and Hyperlipidemia and BMI 37.31. Expected Outcomes/Goals Expected Outcomes/Goals 1.PO intake to continue to meet >75% of estimated nutritional needs. 2.Monitor PO intake, wt, nutrition related labs, and skin integrity. 3.Gradual weight loss (0.5-1.0 LB/week) trending toward STACEY preferred. 4.F/U as low risk in 7-10 days , 1/2/3-2/6
[2019-03-30] MEDS: Benztropine 1 MG TAB PO SCH (08:13)
--- NOTE | 2019-03-30 08:32 | Progress Notes ---
DATE: SUBJECTIVE: Chart was reviewed and the patient interviewed. Also discussed the patient's condition with the staff and reviewed records and labs. The patient is still restless and is still anxious and is agitated. The patient also is still suspicious and is still guarded and withdrawn and stays by herself in her room most of the time. Minimum interaction with others. The patient also is still feeling hopeless and helpless. Otherwise, the patient is compliant with taking her medications with no side effects of medications. ASSESSMENT: The patient is still depressed and confused. TREATMENT PLAN: Continue to monitor behavior and condition closely. Also, continue working on behavioral modification and on her irritability and continue to follow up. JOB# [id number]
--- NOTE | 2019-03-30 17:51 | Internal Medicine Prog Note ---
Internal Medicine Subjective - Subjective Service Date: 03/30/19 Patient seen and examined:: without staff (she feels well) Patient is:: awake, verbal, confused Per staff patient has:: no adverse event Internal Medicine Objective - Physical Exam Vitals and I&O: Vital Signs Temp 97.8 F 03/30/19 14:00 Pulse 70 03/30/19 14:00 Resp 18 03/30/19 14:00 BP 106/69 03/30/19 14:00 Pulse Ox 97 03/30/19 14:00 Intake & Output 03/29/19 03/30/19 03/30/19 18:59 06:59 18:59 Intake Total 120 1200 Balance 120 1200 Intake: Oral 120 1200 Other: # Voids 2 # Bowel Movements 0 1 Stool Characteristics Soft Soft Formed Formed Brown Brown Active Medications: Current Medications Al Hydrox/Mg Hydrox/Simethicone (Maalox) 30 ml PO QID PRN PRN Reason: GI DISTRESS Stop: 05/16/19 01:48 [facility] [place] Stop: 05/27/19 08:59 Last Admin: 03/30/19 08:13 Dose: 10 mg Benztropine Mesylate (Cogentin) 1 mg PO DAILY [facility] Stop: 05/16/19 08:59 Last Admin: 03/30/19 08:13 Dose: 1 mg Docusate Sodium (Colace) 250 mg PO DAILY [facility] Stop: 05/16/19 08:59 Last Admin: 03/30/19 08:13 Dose: 250 mg Escitalopram Oxalate (Lexapro) 20 mg PO DAILY [facility]; Protocol Stop: 05/16/19 08:59 Last Admin: 03/30/19 08:14 Dose: 20 mg Lorazepam (Ativan) 0.5 mg PO Q4HR PRN; Protocol PRN Reason: Anxiety Stop: 04/16/19 01:45 Metoprolol Succinate (Toprol Xl) 25 mg PO DAILY [facility] Stop: 05/16/19 08:59 Last Admin: 03/30/19 08:14 Dose: 25 mg Mirtazapine (Remeron) 15 mg PO HS [facility]; Protocol Stop: 05/21/19 20:59 Last Admin: 03/29/19 20:18 Dose: 15 mg Simvastatin (Zocor) 20 mg PO HS [facility]; Protocol Stop: 05/16/19 20:59 Last Admin: 03/29/19 20:19 Dose: 20 mg Zolpidem Tartrate (Ambien) 5 mg PO HS PRN PRN Reason: Insomnia Stop: 05/16/19 01:45 Last Admin: 03/18/19 21:36 Dose: 5 mg General: demented HEENT: NC/AT, PERRLA, EOMI, anicteric sclerae, throat clear Neck: Supple, No JVD, No thyromegaly, +2 carotid pulse wo bruit, No LAD Lungs: CTAB Cardiovascular: RRR, Normal S1, Normal S2, without murmur Abdomen: soft, non-tender, non-distended Extremities: clear Neurological: no change - Procedures Procedures: Procedures Procedure Code Date ASPIR CURETT UTERUS NEC 69.59 08/15/09 COLONOSCOPY 45.23 03/26/10 DIAGNOSTIC COLONOSCOPY 95946 03/26/10 DILATION AND CURETTAGE 92265 08/15/09 LAPAROSCOPIC CHOLECYSTECTOMY 51.23 03/26/10 LAPAROSCOPIC CHOLECYSTECTOMY 54978 03/26/10 Internal Medicine Assmt/Plan - Assessment Assessment: 1.HTN. 2.HYPERLIPIDEMIA. 2.DJD. 4.SCHIZOPHRENIA - Plan Plan: CONTINUE ON CURRENT MEDICATION AND DIET. Nutritional Asmnt/Malnutr-PDOC - Dietary Evaluation Malnutrition Findings (Please click <Entered> for more info): Nutritional Asmnt/Malnutrition Start: 03/20/19 14: 08 Text: Status: Complete Freq: Protocol: Document 03/20/19 14:08 ANGEL (Rec: 03/20/19 14:10 ANGEL [email or web address]) Nutritional Asmnt/Malnutrition Patient General Information Nutritional Screening Moderate Risk Diagnosis Psychosis Pertinent Medical Hx/Surgical Hx HTN, Hyperlipidemia, DJD, Schizophrenia Subjective Information Pt is a 63-year-old female admitted on 03/17 d/t. Pt is eating an estimated 95% of meals Per Meal/Nutrition Activity Record. Dietary is currently providing an estimated 2500 kcals and 110 gm Pro, per Pt PO intake this is providing an estimated 2400 kcals and 105gm Pro to meet 100+% kcal and 100+% Pro needs . Visited pt in room today, she still had lunch on her tray table. Pt had eaten the ice cream and drank the milk. Pt stated she just has a small appetite. She understands she is on an appetite stimulant and she does drink her Ensure. Nurse Samira stated she typically eats almost all of her meal trays and she may finish her tray with more time . As pt is exceeding estimated nutritional needs overall, Recommend Cardiac diet d/t Hx of HTN and Hyperlipidemia and BMI 37.31. Anthropometrics HT: 52 WT: 204 LB (92.73 kg) ABW: 135 LB (60.68 kg) BMI: 37.31 (Obese, class II) GI/ Skin Integrity GI: WNL, Soft, Non-tender BM: 03/19 x1 I/O: 1260/Not Noted Skin: WNL, Intact Leonid: 20 Diet Order: 2 GM NA, Ensure Enlive TID Estimated Energy Needs: (Obese , ABW) 3450-5675 kcals (20-25 kcals/ kg) 50-60g Pro (0.8-1.0 g/kg) 9361-4488 ml (25-30 ml/kg) Current Diet Order/ Nutrition Support 2 GM NA, Ensure Enlive TID Pertinent Medications Colace, Megace Pertinent Labs No labs charted/available. Nutritional Hx/Data Height 1.57 m Height (Calculated Centimeters) 157.5 Current Weight (lbs) 92.533 kg Weight (Calculated Kilograms) 92.5 Weight (Calculated Grams) 47090.8 [place] Body Weight 110 LB (50 kg) % [place] Body Weight 185 Body Mass Index (BMI) 37.3 Weight Status Obese GI Symptoms Last BM 03/19 x1 Skin Integrity/Comment: Skin: WNL, Intact Leonid: 20 Current %PO Good (75-100%) Estimated Nutritional Goals BEE in Kcals: Adj wt of IBW Calories/Kcals/Kg 20-25 Kcals Calculated 6225-8584 Protein: Adj wt of IBW Protein g/k.8-1.0 Protein Calculated 50-60 Fluid: ml 9415-9039 Nutritional Problem 1. Problem Problem Obesity Etiology r/t chronic energy overconsumption Signs/Symptoms: aeb BMI 37.31. Malnutrition Related to Morbid Obesity Malnutrition related to morbid obesity No Intervention/Recommendation Comments Recommend Cardiac diet d/t Hx of HTN and Hyperlipidemia and BMI 37.31. Expected Outcomes/Goals Expected Outcomes/Goals 1.PO intake to continue to meet >75% of estimated nutritional needs. 2.Monitor PO intake, wt, nutrition related labs, and skin integrity. 3.Gradual weight loss (0.5-1.0 LB/week) trending toward STACEY preferred. 4.F/U as low risk in 7-10 days , 02/23/-03/30
[2019-03-31] MEDS: Benztropine 1 MG TAB PO SCH (08:38)
--- NOTE | 2019-03-31 17:45 | Internal Medicine Prog Note ---
Internal Medicine Subjective - Subjective Service Date: 03/31/19 Patient seen and examined:: without staff (SHE IS BO CEDEÑO) Patient is:: awake, verbal, confused Per staff patient has:: no adverse event Internal Medicine Objective - Physical Exam Vitals and I&O: Vital Signs Temp 98.3 F 03/31/19 14:00 Pulse 78 03/31/19 14:00 Resp 18 03/31/19 14:00 BP 120/75 03/31/19 14:00 Pulse Ox 96 03/31/19 14:00 Intake & Output 03/30/19 03/31/19 03/31/19 18:59 06:59 18:59 Intake Total 0768 275 3720 Balance 5402 442 9701 Intake: Oral 7855 143 9119 Other: # Voids 0 # Bowel Movements 1 0 1 Stool Characteristics Soft Formed Brown Active Medications: Current Medications Al Hydrox/Mg Hydrox/Simethicone (Maalox) 30 ml PO QID PRN PRN Reason: GI DISTRESS Stop: 05/16/19 01:48 [facility] [place] Protocol Stop: 05/27/19 08:59 Last Admin: 03/31/19 08:38 Dose: 10 mg Benztropine Mesylate (Cogentin) 1 mg PO DAILY [facility] Stop: 05/16/19 08:59 Last Admin: 03/31/19 08:38 Dose: 1 mg Docusate Sodium (Colace) 250 mg PO DAILY [facility] Stop: 05/16/19 08:59 Last Admin: 03/31/19 08:38 Dose: 250 mg Escitalopram Oxalate (Lexapro) 20 mg PO DAILY [facility]; Protocol Stop: 05/16/19 08:59 Last Admin: 03/31/19 08:39 Dose: 20 mg Lorazepam (Ativan) 0.5 mg PO Q4HR PRN; Protocol PRN Reason: Anxiety Stop: 04/16/19 01:45 Metoprolol Succinate (Toprol Xl) 25 mg PO DAILY [facility] Stop: 05/16/19 08:59 Last Admin: 03/31/19 08:39 Dose: Not Given Mirtazapine (Remeron) 15 mg PO HS [facility]; Protocol Stop: 05/21/19 20:59 Last Admin: 03/30/19 21:08 Dose: 15 mg Simvastatin (Zocor) 20 mg PO HS [facility]; Protocol Stop: 05/16/19 20:59 Last Admin: 03/30/19 21:07 Dose: 20 mg Zolpidem Tartrate (Ambien) 5 mg PO HS PRN PRN Reason: Insomnia Stop: 05/16/19 01:45 Last Admin: 03/18/19 21:36 Dose: 5 mg General: demented HEENT: NC/AT, PERRLA, EOMI, anicteric sclerae, throat clear Neck: Supple, No JVD, No thyromegaly, +2 carotid pulse wo bruit, No LAD Lungs: CTAB Cardiovascular: RRR, Normal S1, Normal S2, without murmur Abdomen: soft, non-tender, non-distended Extremities: clear Neurological: no change - Procedures Procedures: Procedures Procedure Code Date ASPIR CURETT UTERUS NEC 69.59 08/15/09 COLONOSCOPY 45.23 03/26/10 DIAGNOSTIC COLONOSCOPY 57813 03/26/10 DILATION AND CURETTAGE 97246 08/15/09 LAPAROSCOPIC CHOLECYSTECTOMY 51.23 03/26/10 LAPAROSCOPIC CHOLECYSTECTOMY 52471 03/26/10 Internal Medicine Assmt/Plan - Assessment Assessment: 1.HTN. 2.HYPERLIPIDEMIA. 2.DJD. 4.SCHIZOPHRENIA - Plan Plan: CONTINUE ON CURRENT MEDICATION AND DIET. Nutritional Asmnt/Malnutr-PDOC - Dietary Evaluation Malnutrition Findings (Please click <Entered> for more info): Nutritional Asmnt/Malnutrition Start: 03/20/19 14: 08 Text: Status: Complete Freq: Protocol: Document 03/20/19 14:08 ANGEL (Rec: 03/20/19 14:10 ANGEL [email or web address]) Nutritional Asmnt/Malnutrition Patient General Information Nutritional Screening Moderate Risk Diagnosis Psychosis Pertinent Medical Hx/Surgical Hx HTN, Hyperlipidemia, DJD, Schizophrenia Subjective Information Pt is a 63-year-old female admitted on 03/17 d/t. Pt is eating an estimated 95% of meals Per Meal/Nutrition Activity Record. Dietary is currently providing an estimated 2500 kcals and 110 gm Pro, per Pt PO intake this is providing an estimated 2400 kcals and 105gm Pro to meet 100+% kcal and 100+% Pro needs . Visited pt in room today, she still had lunch on her tray table. Pt had eaten the ice cream and drank the milk. Pt stated she just has a small appetite. She understands she is on an appetite stimulant and she does drink her Ensure. Nurse Samira stated she typically eats almost all of her meal trays and she may finish her tray with more time . As pt is exceeding estimated nutritional needs overall, Recommend Cardiac diet d/t Hx of HTN and Hyperlipidemia and BMI 37.31. Anthropometrics HT: 52 WT: 204 LB (92.73 kg) ABW: 135 LB (60.68 kg) BMI: 37.31 (Obese, class II) GI/ Skin Integrity GI: WNL, Soft, Non-tender BM: 03/19 x1 I/O: 1260/Not Noted Skin: WNL, Intact Leonid: 20 Diet Order: 2 GM NA, Ensure Enlive TID Estimated Energy Needs: (Obese , ABW) 0734-4000 kcals (20-25 kcals/ kg) 50-60g Pro (0.8-1.0 g/kg) 0239-3201 ml (25-30 ml/kg) Current Diet Order/ Nutrition Support 2 GM NA, Ensure Enlive TID Pertinent Medications Colace, Megace Pertinent Labs No labs charted/available. Nutritional Hx/Data Height 1.57 m Height (Calculated Centimeters) 157.5 Current Weight (lbs) 92.533 kg Weight (Calculated Kilograms) 92.5 Weight (Calculated Grams) 79576.8 [place] Body Weight 110 LB (50 kg) % [place] Body Weight 185 Body Mass Index (BMI) 37.3 Weight Status Obese GI Symptoms Last BM 03/19 x1 Skin Integrity/Comment: Skin: WNL, Intact Leonid: 20 Current %PO Good (75-100%) Estimated Nutritional Goals BEE in Kcals: Adj wt of IBW Calories/Kcals/Kg 20-25 Kcals Calculated 7312-0627 Protein: Adj wt of IBW Protein g/k.8-1.0 Protein Calculated 50-60 Fluid: ml 4812-3095 Nutritional Problem 1. Problem Problem Obesity Etiology r/t chronic energy overconsumption Signs/Symptoms: aeb BMI 37.31. Malnutrition Related to Morbid Obesity Malnutrition related to morbid obesity No Intervention/Recommendation Comments Recommend Cardiac diet d/t Hx of HTN and Hyperlipidemia and BMI 37.31. Expected Outcomes/Goals Expected Outcomes/Goals 1.PO intake to continue to meet >75% of estimated nutritional needs. 2.Monitor PO intake, wt, nutrition related labs, and skin integrity. 3.Gradual weight loss (0.5-1.0 LB/week) trending toward STACEY preferred. 4.F/U as low risk in 7-10 days , //-03/30
--- NOTE | 2019-03-31 21:46 | Progress Notes ---
DATE: 03/31/2019 SUBJECTIVE: Chart reviewed and the patient interviewed. Also, discussed the patient's condition with the staff and reviewed records and labs. The patient is still in a depressed mood and isolates herself. She is also interacting minimally with peers and with others and wants to be left alone. She also is still at times showing very depressed mood, but in general, she has flat affect. ASSESSMENT: The patient is still depressed and withdrawn. TREATMENT PLAN: Continue Abilify and Lexapro and Remeron same dose. Also, encouraged the patient to interact more with others and to get out of her isolation. At the same time, we will continue adjusting medications and we will continue to follow up closely. [facility]# [id number]
[2019-04-01] MEDS: Benztropine 1 MG TAB PO SCH (09:22)
--- NOTE | 2019-04-01 19:52 | Progress Notes ---
DATE: 04/01/2019 IDENTIFYING DATA: A 63-year-old female with history of schizophrenia, brought in here from [place] for severe depression and paranoia. Today in the interview room, the patient required minimally interactive, selectively mute at times with further questions and avoidant. MENTAL STATUS EXAMINATION: Selectively mute, avoidant. Flat affect. ASSESSMENT AND PLAN: The patient continues to present very withdrawn and depressed with minimal interaction with others. We will continue with the current adjustment of the depressive medications as he continues to reach steady state. JOB# [id number]
--- NOTE | 2019-04-01 21:13 | Internal Medicine Prog Note ---
Internal Medicine Subjective - Subjective Service Date: 04/01/19 Patient seen and examined:: without staff (SHE FEELS WELL) Patient is:: awake, verbal, confused Per staff patient has:: no adverse event Internal Medicine Objective - Physical Exam Vitals and I&O: Vital Signs Temp 97.4 F 04/01/19 20:55 Pulse 72 04/01/19 20:55 Resp 20 04/01/19 20:55 BP 118/68 04/01/19 20:55 Pulse Ox 93 04/01/19 20:55 Intake & Output 04/01/19 04/01/19 04/02/19 06:59 18:59 06:59 Intake Total 480 1000 240 Balance 480 1000 240 Intake: Oral 480 1000 240 Other: # Voids 1 4 2 # Bowel Movements 1 Active Medications: Current Medications Al Hydrox/Mg Hydrox/Simethicone (Maalox) 30 ml PO QID PRN PRN Reason: GI DISTRESS Stop: 05/16/19 01:48 Aripiprazole (Abilify) 10 mg PO QAM [facility]; Protocol Stop: 05/27/19 08:59 Last Admin: 04/01/19 09:22 Dose: 10 mg Benztropine Mesylate (Cogentin) 1 mg PO DAILY [facility] Stop: 05/16/19 08:59 Last Admin: 04/01/19 09:22 Dose: 1 mg Docusate Sodium (Colace) 250 mg PO DAILY [facility] Stop: 05/16/19 08:59 Last Admin: 04/01/19 09:22 Dose: 250 mg Escitalopram Oxalate (Lexapro) 20 mg PO DAILY [facility]; Protocol Stop: 05/16/19 08:59 Last Admin: 04/01/19 09:22 Dose: 20 mg Lorazepam (Ativan) 0.5 mg PO Q4HR PRN; Protocol PRN Reason: Anxiety Stop: 04/16/19 01:45 Metoprolol Succinate (Toprol Xl) 25 mg PO DAILY [facility] Stop: 05/16/19 08:59 Last Admin: 04/01/19 09:22 Dose: 25 mg Mirtazapine (Remeron) 15 mg PO HS [facility]; Protocol Stop: 05/21/19 20:59 Last Admin: 04/01/19 20:26 Dose: 15 mg Simvastatin (Zocor) 20 mg PO HS [facility]; Protocol Stop: 05/16/19 20:59 Last Admin: 04/01/19 20:26 Dose: 20 mg Zolpidem Tartrate (Ambien) 5 mg PO HS PRN PRN Reason: Insomnia Stop: 05/16/19 01:45 Last Admin: 03/18/19 21:36 Dose: 5 mg General: demented HEENT: NC/AT, PERRLA, EOMI, anicteric sclerae, throat clear Neck: Supple, No JVD, No thyromegaly, +2 carotid pulse wo bruit, No LAD Lungs: CTAB Cardiovascular: RRR, Normal S1, Normal S2, without murmur Abdomen: soft, non-tender, non-distended Extremities: clear Neurological: no change - Procedures Procedures: Procedures Procedure Code Date ASPIR CURETT UTERUS NEC 69.59 08/15/09 COLONOSCOPY 45.23 03/26/10 DIAGNOSTIC COLONOSCOPY 67836 03/26/10 DILATION AND CURETTAGE 21788 08/15/09 LAPAROSCOPIC CHOLECYSTECTOMY 51.23 03/26/10 LAPAROSCOPIC CHOLECYSTECTOMY 44194 03/26/10 Internal Medicine Assmt/Plan - Assessment Assessment: 1.HTN. 2.HYPERLIPIDEMIA. 2.DJD. 4.SCHIZOPHRENIA - Plan Plan: CONTINUE ON CURRENT MEDICATION AND DIET. Nutritional Asmnt/Malnutr-PDOC - Dietary Evaluation Malnutrition Findings (Please click <Entered> for more info): Nutritional Asmnt/Malnutrition Start: 03/20/19 14: 08 Text: Status: Complete Freq: Protocol: Document 03/20/19 14:08 ANGEL (Rec: 03/20/19 14:10 ANGEL [email or web address]) Nutritional Asmnt/Malnutrition Patient General Information Nutritional Screening Moderate Risk Diagnosis Psychosis Pertinent Medical Hx/Surgical Hx HTN, Hyperlipidemia, DJD, Schizophrenia Subjective Information Pt is a 63-year-old female admitted on 03/17 d/t. Pt is eating an estimated 95% of meals Per Meal/Nutrition Activity Record. Dietary is currently providing an estimated 2500 kcals and 110 gm Pro, per Pt PO intake this is providing an estimated 2400 kcals and 105gm Pro to meet 100+% kcal and 100+% Pro needs . Visited pt in room today, she still had lunch on her tray table. Pt had eaten the ice cream and drank the milk. Pt stated she just has a small appetite. She understands she is on an appetite stimulant and she does drink her Ensure. Nurse Samira stated she typically eats almost all of her meal trays and she may finish her tray with more time . As pt is exceeding estimated nutritional needs overall, Recommend Cardiac diet d/t Hx of HTN and Hyperlipidemia and BMI 37.31. Anthropometrics HT: 52 WT: 204 LB (92.73 kg) ABW: 135 LB (60.68 kg) BMI: 37.31 (Obese, class II) GI/ Skin Integrity GI: WNL, Soft, Non-tender BM: 03/19 x1 I/O: 1260/Not Noted Skin: WNL, Intact Leonid: 20 Diet Order: 2 GM NA, Ensure Enlive TID Estimated Energy Needs: (Obese , ABW) 7673-2274 kcals (20-25 kcals/ kg) 50-60g Pro (0.8-1.0 g/kg) 9290-6832 ml (25-30 ml/kg) Current Diet Order/ Nutrition Support 2 GM NA, Ensure Enlive TID Pertinent Medications Colace, Megace Pertinent Labs No labs charted/available. Nutritional Hx/Data Height 1.57 m Height (Calculated Centimeters) 157.5 Current Weight (lbs) 92.533 kg Weight (Calculated Kilograms) 92.5 Weight (Calculated Grams) 08406.8 [place] Body Weight 110 LB (50 kg) % [place] Body Weight 185 Body Mass Index (BMI) 37.3 Weight Status Obese GI Symptoms Last BM 03/19 x1 Skin Integrity/Comment: Skin: WNL, Intact Leonid: 20 Current %PO Good (75-100%) Estimated Nutritional Goals BEE in Kcals: Adj wt of IBW Calories/Kcals/Kg 20-25 Kcals Calculated 4036-5464 Protein: Adj wt of IBW Protein g/k.8-1.0 Protein Calculated 50-60 Fluid: ml 7328-8590 Nutritional Problem 1. Problem Problem Obesity Etiology r/t chronic energy overconsumption Signs/Symptoms: aeb BMI 37.31. Malnutrition Related to Morbid Obesity Malnutrition related to morbid obesity No Intervention/Recommendation Comments Recommend Cardiac diet d/t Hx of HTN and Hyperlipidemia and BMI 37.31. Expected Outcomes/Goals Expected Outcomes/Goals 1.PO intake to continue to meet >75% of estimated nutritional needs. 2.Monitor PO intake, wt, nutrition related labs, and skin integrity. 3.Gradual weight loss (0.5-1.0 LB/week) trending toward STACEY preferred. 4.F/U as low risk in 7-10 days , //3-03/30
[2019-04-02] MEDS: Benztropine 1 MG TAB PO SCH (09:09)
--- NOTE | 2019-04-02 16:40 | Internal Medicine Prog Note ---
Internal Medicine Subjective - Subjective Service Date: 04/02/19 Patient seen and examined:: without staff (SHE FEELS WELL) Patient is:: awake, verbal, confused Per staff patient has:: no adverse event Internal Medicine Objective - Physical Exam Vitals and I&O: Vital Signs Temp 98.3 F 04/02/19 14:00 Pulse 69 04/02/19 14:00 Resp 18 04/02/19 14:00 BP 101/64 04/02/19 14:00 Pulse Ox 98 04/02/19 14:00 Intake & Output 04/01/19 04/02/19 04/02/19 18:59 06:59 18:59 Intake Total 1000 240 700 Balance 1000 240 700 Intake: Oral 1000 240 700 Other: # Voids 4 1 # Bowel Movements 1 Active Medications: Current Medications Al Hydrox/Mg Hydrox/Simethicone (Maalox) 30 ml PO QID PRN PRN Reason: GI DISTRESS Stop: 05/16/19 01:48 Aripiprazole (Abilify) 10 mg PO QAM [facility]; Protocol Stop: 05/27/19 08:59 Last Admin: 04/02/19 09:10 Dose: 10 mg Benztropine Mesylate (Cogentin) 1 mg PO DAILY [facility] Stop: 05/16/19 08:59 Last Admin: 04/02/19 09:09 Dose: 1 mg Docusate Sodium (Colace) 250 mg PO DAILY [facility] Stop: 05/16/19 08:59 Last Admin: 04/02/19 09:09 Dose: 250 mg Escitalopram Oxalate (Lexapro) 20 mg PO DAILY [facility]; Protocol Stop: 05/16/19 08:59 Last Admin: 04/02/19 09:10 Dose: 20 mg Lorazepam (Ativan) 0.5 mg PO Q4HR PRN; Protocol PRN Reason: Anxiety Stop: 04/16/19 01:45 Metoprolol Succinate (Toprol Xl) 25 mg PO DAILY [facility] Stop: 05/16/19 08:59 Last Admin: 04/02/19 09:10 Dose: 25 mg Mirtazapine (Remeron) 15 mg PO HS [facility]; Protocol Stop: 05/21/19 20:59 Last Admin: 04/01/19 20:26 Dose: 15 mg Simvastatin (Zocor) 20 mg PO HS [facility]; Protocol Stop: 05/16/19 20:59 Last Admin: 04/01/19 20:26 Dose: 20 mg Zolpidem Tartrate (Ambien) 5 mg PO HS PRN PRN Reason: Insomnia Stop: 05/16/19 01:45 Last Admin: 03/18/19 21:36 Dose: 5 mg General: demented HEENT: NC/AT, PERRLA, EOMI, anicteric sclerae, throat clear Neck: Supple, No JVD, No thyromegaly, +2 carotid pulse wo bruit, No LAD Lungs: CTAB Cardiovascular: RRR, Normal S1, Normal S2, without murmur Abdomen: soft, non-tender, non-distended Extremities: clear Neurological: no change - Procedures Procedures: Procedures Procedure Code Date ASPIR CURETT UTERUS NEC 69.59 08/15/09 COLONOSCOPY 45.23 03/26/10 DIAGNOSTIC COLONOSCOPY 78821 03/26/10 DILATION AND CURETTAGE 46719 08/15/09 LAPAROSCOPIC CHOLECYSTECTOMY 51.23 03/26/10 LAPAROSCOPIC CHOLECYSTECTOMY 79805 03/26/10 Internal Medicine Assmt/Plan - Assessment Assessment: 1.HTN. 2.HYPERLIPIDEMIA. 2.DJD. 4.SCHIZOPHRENIA - Plan Plan: CONTINUE ON CURRENT MEDICATION AND DIET. Nutritional Asmnt/Malnutr-PDOC - Dietary Evaluation Malnutrition Findings (Please click <Entered> for more info): Nutritional Asmnt/Malnutrition Start: 03/20/19 14: 08 Text: Status: Complete Freq: Protocol: Document 03/20/19 14:08 ANGEL (Rec: 03/20/19 14:10 [email or web address] [email or web address]) Nutritional Asmnt/Malnutrition Patient General Information Nutritional Screening Moderate Risk Diagnosis Psychosis Pertinent Medical Hx/Surgical Hx HTN, Hyperlipidemia, DJD, Schizophrenia Subjective Information Pt is a 63-year-old female admitted on 03/17 d/t. Pt is eating an estimated 95% of meals Per Meal/Nutrition Activity Record. Dietary is currently providing an estimated 2500 kcals and 110 gm Pro, per Pt PO intake this is providing an estimated 2400 kcals and 105gm Pro to meet 100+% kcal and 100+% Pro needs . Visited pt in room today, she still had lunch on her tray table. Pt had eaten the ice cream and drank the milk. Pt stated she just has a small appetite. She understands she is on an appetite stimulant and she does drink her Ensure. Nurse Samira stated she typically eats almost all of her meal trays and she may finish her tray with more time . As pt is exceeding estimated nutritional needs overall, Recommend Cardiac diet d/t Hx of HTN and Hyperlipidemia and BMI 37.31. Anthropometrics HT: 52 WT: 204 LB (92.73 kg) ABW: 135 LB (60.68 kg) BMI: 37.31 (Obese, class II) GI/ Skin Integrity GI: WNL, Soft, Non-tender BM: 03/19 x1 I/O: 1260/Not Noted Skin: WNL, Intact Leonid: 20 Diet Order: 2 GM NA, Ensure Enlive TID Estimated Energy Needs: (Obese , ABW) 9590-4867 kcals (20-25 kcals/ kg) 50-60g Pro (0.8-1.0 g/kg) 9571-3954 ml (25-30 ml/kg) Current Diet Order/ Nutrition Support 2 GM NA, Ensure Enlive TID Pertinent Medications Colace, Megace Pertinent Labs No labs charted/available. Nutritional Hx/Data Height 1.57 m Height (Calculated Centimeters) 157.5 Current Weight (lbs) 92.533 kg Weight (Calculated Kilograms) 92.5 Weight (Calculated Grams) 71253.8 [place] Body Weight 110 LB (50 kg) % [place] Body Weight 185 Body Mass Index (BMI) 37.3 Weight Status Obese GI Symptoms Last BM 03/19 x1 Skin Integrity/Comment: Skin: WNL, Intact Leonid: 20 Current %PO Good (75-100%) Estimated Nutritional Goals BEE in Kcals: Adj wt of IBW Calories/Kcals/Kg 20-25 Kcals Calculated 0509-4641 Protein: Adj wt of IBW Protein g/k.8-1.0 Protein Calculated 50-60 Fluid: ml 6931-8189 Nutritional Problem 1. Problem Problem Obesity Etiology r/t chronic energy overconsumption Signs/Symptoms: aeb BMI 37.31. Malnutrition Related to Morbid Obesity Malnutrition related to morbid obesity No Intervention/Recommendation Comments Recommend Cardiac diet d/t Hx of HTN and Hyperlipidemia and BMI 37.31. Expected Outcomes/Goals Expected Outcomes/Goals 1.PO intake to continue to meet >75% of estimated nutritional needs. 2.Monitor PO intake, wt, nutrition related labs, and skin integrity. 3.Gradual weight loss (0.5-1.0 LB/week) trending toward STACEY preferred. 4.F/U as low risk in 7-10 days , //3-03/30
--- NOTE | 2019-04-03 01:01 | Progress Notes ---
DATE: 04/02/2019 SUBJECTIVE: Today, on [id number] evaluation, isolating in her room, reporting everything is fine, then guarded, minimizing, disengaged. MENTAL STATUS EXAMINATION: Disengaged, selectively mute. ASSESSMENT AND PLAN: Major depressive disorder who continues to present withdrawn, disengaged and avoidant with minimal interaction with other peers. We will continue with Lexapro, mirtazapine and Abilify. [facility]# [id number]
[2019-04-03] MEDS: Benztropine 1 MG TAB PO SCH (08:21)
--- NOTE | 2019-04-03 17:38 | Internal Medicine Prog Note ---
Internal Medicine Subjective - Subjective Service Date: 04/03/19 Patient seen and examined:: without staff (she feels well) Patient is:: awake, verbal, confused Per staff patient has:: no adverse event Internal Medicine Objective - Physical Exam Vitals and I&O: Vital Signs Temp 97.6 F 04/03/19 14:00 Pulse 84 04/03/19 14:00 Resp 18 04/03/19 14:00 BP 107/68 04/03/19 14:00 Pulse Ox 95 04/03/19 14:00 Intake & Output 04/02/19 04/03/19 04/03/19 18:59 06:59 18:59 Intake Total 1100 240 Balance 1100 240 Intake: Oral 1100 240 Other: # Voids 2 Active Medications: Current Medications Al Hydrox/Mg Hydrox/Simethicone (Maalox) 30 ml PO QID PRN PRN Reason: GI DISTRESS Stop: 05/16/19 01:48 Aripiprazole (Abilify) 10 mg PO QAM [facility]; Protocol Stop: 05/27/19 08:59 Last Admin: 04/03/19 08:21 Dose: 10 mg Benztropine Mesylate (Cogentin) 1 mg PO DAILY [facility] Stop: 05/16/19 08:59 Last Admin: 04/03/19 08:21 Dose: 1 mg Docusate Sodium (Colace) 250 mg PO DAILY [facility] Stop: 05/16/19 08:59 Last Admin: 04/03/19 08:21 Dose: 250 mg Escitalopram Oxalate (Lexapro) 20 mg PO DAILY [facility]; Protocol Stop: 05/16/19 08:59 Last Admin: 04/03/19 08:21 Dose: 20 mg Lorazepam (Ativan) 0.5 mg PO Q4HR PRN; Protocol PRN Reason: Anxiety Stop: 04/16/19 01:45 Metoprolol Succinate (Toprol Xl) 25 mg PO DAILY [facility] Stop: 05/16/19 08:59 Last Admin: 04/03/19 08:21 Dose: Not Given Mirtazapine (Remeron) 15 mg PO HS [facility]; Protocol Stop: 05/21/19 20:59 Last Admin: 04/02/19 20:52 Dose: 15 mg Simvastatin (Zocor) 20 mg PO HS [facility]; Protocol Stop: 05/16/19 20:59 Last Admin: 04/02/19 20:52 Dose: 20 mg Zolpidem Tartrate (Ambien) 5 mg PO HS PRN PRN Reason: Insomnia Stop: 05/16/19 01:45 Last Admin: 03/18/19 21:36 Dose: 5 mg General: demented HEENT: NC/AT, PERRLA, EOMI, anicteric sclerae, throat clear Neck: Supple, No JVD, No thyromegaly, +2 carotid pulse wo bruit, No LAD Lungs: CTAB Cardiovascular: RRR, Normal S1, Normal S2, without murmur Abdomen: soft, non-tender, non-distended Extremities: clear Neurological: no change - Procedures Procedures: Procedures Procedure Code Date ASPIR CURETT UTERUS NEC 69.59 08/15/09 COLONOSCOPY 45.23 03/26/10 DIAGNOSTIC COLONOSCOPY 99134 03/26/10 DILATION AND CURETTAGE 06873 08/15/09 LAPAROSCOPIC CHOLECYSTECTOMY 51.23 03/26/10 LAPAROSCOPIC CHOLECYSTECTOMY 14839 03/26/10 Internal Medicine Assmt/Plan - Assessment Assessment: 1.HTN. 2.HYPERLIPIDEMIA. 2.DJD. 4.SCHIZOPHRENIA - Plan Plan: CONTINUE ON CURRENT MEDICATION AND DIET. Nutritional Asmnt/Malnutr-PDOC - Dietary Evaluation Malnutrition Findings (Please click <Entered> for more info): Nutritional Asmnt/Malnutrition Start: 03/20/19 14: 08 Text: Status: Complete Freq: Protocol: Document 03/20/19 14:08 ANGEL (Rec: 03/20/19 14:10 ANGEL [email or web address]) Nutritional Asmnt/Malnutrition Patient General Information Nutritional Screening Moderate Risk Diagnosis Psychosis Pertinent Medical Hx/Surgical Hx HTN, Hyperlipidemia, DJD, Schizophrenia Subjective Information Pt is a 63-year-old female admitted on 03/17 d/t. Pt is eating an estimated 95% of meals Per Meal/Nutrition Activity Record. Dietary is currently providing an estimated 2500 kcals and 110 gm Pro, per Pt PO intake this is providing an estimated 2400 kcals and 105gm Pro to meet 100+% kcal and 100+% Pro needs . Visited pt in room today, she still had lunch on her tray table. Pt had eaten the ice cream and drank the milk. Pt stated she just has a small appetite. She understands she is on an appetite stimulant and she does drink her Ensure. Nurse Samira stated she typically eats almost all of her meal trays and she may finish her tray with more time . As pt is exceeding estimated nutritional needs overall, Recommend Cardiac diet d/t Hx of HTN and Hyperlipidemia and BMI 37.31. Anthropometrics HT: 52 WT: 204 LB (92.73 kg) ABW: 135 LB (60.68 kg) BMI: 37.31 (Obese, class II) GI/ Skin Integrity GI: WNL, Soft, Non-tender BM: 03/19 x1 I/O: 1260/Not Noted Skin: WNL, Intact Leonid: 20 Diet Order: 2 GM NA, Ensure Enlive TID Estimated Energy Needs: (Obese , ABW) 5372-0400 kcals (20-25 kcals/ kg) 50-60g Pro (0.8-1.0 g/kg) 9538-8571 ml (25-30 ml/kg) Current Diet Order/ Nutrition Support 2 GM NA, Ensure Enlive TID Pertinent Medications Colace, Megace Pertinent Labs No labs charted/available. Nutritional Hx/Data Height 1.57 m Height (Calculated Centimeters) 157.5 Current Weight (lbs) 92.533 kg Weight (Calculated Kilograms) 92.5 Weight (Calculated Grams) 64226.8 [place] Body Weight 110 LB (50 kg) % [place] Body Weight 185 Body Mass Index (BMI) 37.3 Weight Status Obese GI Symptoms Last BM 03/19 x1 Skin Integrity/Comment: Skin: WNL, Intact Leonid: 20 Current %PO Good (75-100%) Estimated Nutritional Goals BEE in Kcals: Adj wt of IBW Calories/Kcals/Kg 20-25 Kcals Calculated 1067-6361 Protein: Adj wt of IBW Protein g/k.8-1.0 Protein Calculated 50-60 Fluid: ml 5703-7597 Nutritional Problem 1. Problem Problem Obesity Etiology r/t chronic energy overconsumption Signs/Symptoms: aeb BMI 37.31. Malnutrition Related to Morbid Obesity Malnutrition related to morbid obesity No Intervention/Recommendation Comments Recommend Cardiac diet d/t Hx of HTN and Hyperlipidemia and BMI 37.31. Expected Outcomes/Goals Expected Outcomes/Goals 1.PO intake to continue to meet >75% of estimated nutritional needs. 2.Monitor PO intake, wt, nutrition related labs, and skin integrity. 3.Gradual weight loss (0.5-1.0 LB/week) trending toward STACEY preferred. 4.F/U as low risk in 7-10 days , //3-03/30
--- NOTE | 2019-04-03 19:25 | Discharge Summary ---
DATE OF DISCHARGE: 04/03/2019 AGE: 63. SEX: Female. PHYSICIAN: Dr. Tavo Perez. FINAL DIAGNOSIS AND PRIMARY DIAGNOSIS: Depressive mood disorder, unspecified, severe, with psychotic features. REASON FOR HOSPITALIZATION: The patient was admitted to the hospital because of depression and increased paranoia and suspicious in [facility]. HOSPITAL COURSE: The patient continued to be suspicious and has continued to be paranoid. The patient also wanted to be left alone and not to get out of her room and continued to be feeling hopeless. The patient was given Remeron and the dose adjusted to 15 mg at bedtime and also Abilify and the dose adjusted to 10 mg every day. Gradually, the patient's affect was brighter. The patient was less agitated and less irritable. [facility] decided that the patient to go to a [facility] and the patient was discharged there. PHYSICAL EXAMINATION: The patient showed no major medical issues while in the hospital. Blood workup was also basically within normal. AFTER DISCHARGE PLANS: Outpatient treatment and followup to continue as an outpatient. EXPECTED OUTCOME AFTER DISCHARGE: Fair if the patient continued to take her psychotropic medications and follow up with discharge plans. JOB# [id number]
== END 2019-04-03 20:30 | DRG 885 ==
LOC: GERO 03-17 01:15
PROVIDERS: ADMIT Psychiatry & Neurology Psychiatry; ATTEND Psychiatry & Neurology Psychiatry
DX: F32.3 Major depressive disorder, single episode, severe with psychotic features (principal); I10 Essential (primary) hypertension; E78.5 Hyperlipidemia, unspecified; M19.90 Unspecified osteoarthritis, unspecified site; K21.9 Gastro-esophageal reflux disease without esophagitis
CPT/HCPCS: G0410; Z7610